=== PATIENT | female | born 1955 | race Caucasian/White ===

== ENCOUNTER 2017-07-25 01:06 | Inpatient (IN) ==
[2017-07-25] MEDS ORDERED: Ondansetron 4 MG/2 ML VIAL IVP ONE (01:32)
[2017-07-25] MEDS ORDERED: *HR* FentaNYL (PF) 100 MCG/2 ML VIAL IVP ONE ×2 (01:33→04:35)
--- NOTE | 2017-07-25 02:01 | Emergency Department Note ---
Disposition Clinical Impression: Fall Qualifiers: Encounter type: initial encounter Qualified Code(s): W19.XXXA - Unspecified fall, initial encounter Disposition: Admitted As Inpatient Condition: Undetermined Fall HPI - General Chief Complaint: ED Fall Stated Complaint: L shoulder injury Time Seen by Provider: 07/25/17 01:16 Source: patient, family, EMS Mode of arrival: ambulatory Limitations: no limitations Nursing Notes Reviewed: Yes Vital Signs Reviewed: Yes - History of Present Illness HPI Narrative: Patient is a 62-year-old obese woman with a history of A. fib anticoagulated on Coumadin, that presents to emergency department via EMS after falling out of home. Patient states she stood up out of her chair and when she went to take a step forward she tripped on her house shoes resulting in a forward momentum fall hitting her left shoulder with an entire force of body weight into dresser prior to falling to the floor. Patient complains of left shoulder pain to an inability to move despite a dose of morphine in squad prior to arrival, denies other injuries. 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 Denies: headache, neck pain , numbness, weakness, chest pain, shortness of breath, lightheaded, vertigo, confusion - Related Data Home Medications Medication Instructions Recorded Confirmed Carvedilol 6.25 mg PO BID 07/25/17 07/25/17 Citalopram 40 mg PO HS 07/25/17 07/25/17 Hydroxychloroquine 200 mg PO BID 07/25/17 07/25/17 Isosorbide Mononitrate 15 mg PO HS 07/25/17 07/25/17 Levothyroxine 200 mcg PO DAILY 07/25/17 07/25/17 Methotrexate 2.5 mg PO 07/25/17 Oxygen 4 l IH PRN 07/25/17 Pravastatin Sodium 40 mg PO DAILY 07/25/17 07/25/17 Symbicort 160/4.5 2 IH BID 07/25/17 Ventolin Hfa 1 puff IH 07/25/17 Warfarin 5 mg PO DAILY 07/25/17 07/25/17 rOPINIRole 1 mg PO HS 07/25/17 07/25/17 Previous Rx's Medication Instructions Recorded Phenazopyridine [Pyridium] 100 mg PO TID #21 tablet 08/04/16 levoFLOXacin [Levaquin] 500 mg PO DAILY #7 tablet 08/04/16 cephALEXin [Cephalexin] 500 mg PO BID #14 tablet 03/27/17 Allergies Allergy/AdvReac Type Severity Reaction Status Date / Time acetaminophen [From Percocet] AdvReac Agitated Verified 03/26/17 22:07 Oxycodone [From Percocet] AdvReac Agitated Verified 03/26/17 22:07 All systems ED: reviewed and negative except as stated. Review of Systems: As Per HPI Constitutional: Reports: as per HPI. Denies: weakness Cardiovascular: Reports: as per HPI. Denies: chest pain, palpitations, dyspnea on exertion, syncope Respiratory: Reports: as per HPI. Denies: cough, dyspnea, wheezes, sputum production Musculoskeletal: Reports: as per HPI Integumentary: Reports: as per HPI. Denies: rash Neurological: Reports: as per HPI. Denies: headache, weakness, numbness, paresthesias, confusion, abnormal gait, vertigo Fall PMH - Past Medical History Medical history: Reports: atrial fibrillation, COPD, diabetes, hyperlipidemia, hypertension Psychiatric history: Reports: depression - Social History Smoking Status: Current every day smoker Alcohol use: Reports: none Drug use: Reports: none Physical Exam - General Limitations: no limitations General appearance: alert, in distress - Head Head exam: atraumatic, normocephalic, normal inspection - Eye Eye exam: Present: normal appearance, PERRL - Neck Neck exam: Present: normal inspection, full ROM, trachea midline - Chest Chest inspection: Present: normal inspection, symmetric chest wall rise - Respiratory Respiratory exam: Present: normal lung sounds bilaterally. Absent: respiratory distress, accessory muscle use, prolonged expiratory phase - Cardiovascular Cardiovascular exam: Present: regular rate, normal rhythm, normal heart sounds - Abdominal Exam Abdominal exam: Present: soft, Non-Tender, normal bowel sounds. Absent: tenderness, distention, diminished bowel sounds - Expanded Upper Extremity Exam Shoulder exam: Present: tenderness (left shoulder), tenderness over AC joint, other (inability to move shoulder d/t intense pain). Absent: swelling, abrasion , laceration, ecchymosis, deformity, crepitus, dislocation, erythema Arm exam: Present: normal inspection, tenderness. Absent: full ROM (not able d/ t pain), swelling, abrasion, ecchymosis Elbow exam: Present: normal inspection. Absent: full ROM, tenderness, deformity Forearm/Wrist exam: Present: normal inspection. Absent: full ROM, tenderness Hand exam: Present: normal inspection, full ROM, tenderness Neuromotor exam: Normal: wrist extension, thumb opposition, thumb IP flexion, thumb adduction, fingers 2-5 abduction Neurosensory exam: Normal: radial nerve, ulnar nerve, median nerve, 2-point discrimination Vascular exam: Normal: capillary refill, radial pulse, ulnar pulse - Expanded Lower Extremity Exam Knee exam: Present: normal inspection, full ROM. Absent: tenderness, swelling, ecchymosis, deformity Gait: not tested/not observed - Neurological Exam Neurological exam: Present: alert, oriented X3, CN II-XII intact - Expanded Neurological Exam Speech: Present: fluid speech Cranial nerves: EOM function (II, III, IV, ): Normal, facial sensation (V): Normal, facial palsy (VII): Normal, gag reflex (IX): Normal Motor strength - LUE: 3/5 Motor strength - RUE: 5/5 Motor strength - LLE: 5/5 Motor strength - RLE: 5/5 Sensory exam upper extremity: 2 point discrimination: Normal Coma Scale Eye Opening: Spontaneous Coma Scale Motor Response: Obeys Commands Coma Scale Verbal Response: Oriented Coma Scale Total: 15 - Psychiatric Psychiatric exam: Present: normal affect, normal mood - Skin Skin exam: Present: warm, dry, intact, normal color Course Course Narrative: 62-year-old obese female with a history of A. fib anticoagulated on Coumadin presents from home via EMS and spouse for fall with left shoulder injury. Patient states while standing from chair she was all the way up and went to take a step forward and tripped over her house shoes is resulting in fall with forward motion hitting left shoulder on her dresser as she was falling to the floor. Patient denies other injury. Patient denies dizziness, syncope, confusion prior to fall, denies recent illness. Patient denies head injury, loss of consciousness, confusion after the fall. Spouse's witness to the fall confirmed patient retelling. Examination patient is alert and oriented 3 in moderately severe distress yelling out in pain. Head atraumatic, neurologically intact, Neck with full range of motion without tenderness. Right upper extremity with full range of motion and strength without any deficit, Left shoulder supported by homemade sling with arm pressed tightly against body for immobilization. Patient unable to move left shoulder and upper arm and elbow due to pain, wrist with full range of motion, hand with full range of motion, color left upper extremity is appropriate, temperature appropriate, 2 point discrimination intact and normal, no numbness, tingling, or paresthesia; pain with palpation to the left AC joint , with radiation across clavicle and down upper extremity. Rest of exam unremarkable. Patient is anticoagulated on Coumadin for A. fib, last INR was 2.6 on July 19. 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 Patient denies new onset issues with urination or defecation, no new signs of urinary illness appreciated. Plan is to treat pain, x-ray shoulder, and reevaluate. - Reevaluation(s) Reevaluation #1: Patient continues to have pain, at bedside. Shoulder x-ray revealed comminuted fracture involving the greater tuberosity of the left proximal humerus without dislocation. We will continue to treat patient's pain and evaluate. Time: 02:30 Reevaluation #2: Pain and reported 7 out of 10. Discussed care with patient and explaining the fracture is inoperable most of the time, patient will be referred to orthopedics, and that we would splint his left shoulder treat for pain and patient would be safe to go home. Patient state that they do not think it is safe for them to go home due to inability patient to maneuver through her house due to have it and on mobile left arm, patient and spouse are worried about pain control, much prefer to be admitted for pain control. Discussed case with Attending Dr. Ramos about case, agree with plan of care. At this time admission to inpatient unit for pain control and then management of fracture would be prudent and acceptable. At this time admission to inpatient status is reasonable and acceptable for pain control and med management of fracture and further monitoring. Hospitalist paged. Time: 03:10 Reevaluation #3: Patient up to bedside commode with staff assistance after arm placed in a sling , patient continues to complain of pain back up to an 8 out of 10 scale lochia dose of fentanyl and some to manage pain. Hospitalist on floor to see patient will be admitted under hospitalist service patient and family agreeable plan. Time: 04:40 Vital Signs Temperature 98.7 F 07/25/17 01:12 Pulse Rate 60 07/25/17 01:12 Respiratory Rate 18 07/25/17 01:12 Blood Pressure 138/63 07/25/17 01:12 O2 Sat by Pulse Oximetry 96 07/25/17 01:12 Temperature 98.6 F 07/25/17 05:15 Pulse Rate 61 07/25/17 05:15 Respiratory Rate 17 07/25/17 05:15 Blood Pressure 121/55 07/25/17 05:15 O2 Sat by Pulse Oximetry 90 07/25/17 05:15 Oxygen Delivery Oxygen Delivery Room Air Fall - Medical Records Medical records reviewed: Yes I reviewed the patient's medical records. - Lab Data Result diagrams: 07/25/17 04:20 07/25/17 04:20 Lab Results 07/25/17 07/25/17 07/25/17 Range/Units 04:20 04:20 04:20 WBC 14.4 H (4.3-11.1) K/mcL RBC 3.62 L (3.82-4.97) M/mcL Hgb 10.4 L (11.5-15.4) g/dL Hct 32.8 L (35.3-44.9) % MCV 90.6 (83.0-100.0) fL MCH 28.7 (28.0-33.3) pg MCHC 31.7 (31.6-35.5) g/dL RDW 16.7 H (11.5-14.5) % Plt Count 312 (140-400) K/mcL MPV 11.7 (9.4-12.4) fL Immature Gran % 0.6 (0-4) % Seg Neutrophils % 82.3 % Lymphocytes % 12.3 % Monocytes % 3.2 % Eosinophils % 1.0 % Basophils % 0.6 % Neutrophils # 11.9 H (1.6-8.9) K/mcL Lymphocytes # 1.8 (0.6-4.6) K/mcL Monocytes # 0.5 (0.0-1.3) K/mcL Eosinophils # 0.2 (0.0-0.6) K/mcL Basophils # 0.1 (0.0-0.2) K/mcL PT 44.2 H* (9.4-12.1) Seconds INR 4.0 Sodium 141 (136-145) mEq/L Potassium 3.6 (3.5-5.1) mEq/L Chloride 101 (98-107) mEq/L Carbon Dioxide 30 H (23-29) mEq/L BUN 43 H (8-23) mg/dL Creatinine 1.47 H (0.60-1.20) mg/dL Est GFR ( Amer) 43 L (> 60) Est GFR (Non-Af Amer) 36 L (> 60) BUN/Creatinine Ratio 29 H (6-26) Glucose 115 H (70-105) mg/dL Calculated Osmolality 304 H (280-300) Calcium 8.9 (8.6-10.3) mg/dL Magnesium 1.6 (1.6-2.6) mg/dL - Radiology Data Radiology results reviewed: Yes I reviewed the patient's radiology results. Shoulder X-Ray 07/25/17 01:34 IMPRESSION: Acute comminuted fracture involving the greater tuberosity of the left proximal humerus. D/ / Hina Cross MD / Hina Cross MD Interpreting Provider: Hina Cross MD
[2017-07-25] MEDS ORDERED: *HR* Nalbuphine 20 MG/ML AMPUL IVP ONE (02:03)
[2017-07-25] MEDS ORDERED: *HR* Morphine Immed Rel 30 MG TABLET PO ONE (02:58)
[2017-07-25 04:38] LABS: Basophils # 0.1 K/mcL (0.0-0.2); Basophils % 0.6 %; Eosinophils # 0.2 K/mcL (0.0-0.6); Hematocrit 32.8 % (35.3-44.9); Hemoglobin 10.4 g/dL (11.5-15.4); Immature Granulocytes % 0.6 % (0-4); Lymphocytes # 1.8 K/mcL (0.6-4.6); Lymphocytes % 12.3 %; Mean Corpuscular HGB Conc 31.7 g/dL (31.6-35.5); Mean Corpuscular Hemoglobin 28.7 pg (28.0-33.3); Mean Corpuscular Volume 90.6 fL (83.0-100.0); Mean Platelet Volume 11.7 fL (9.4-12.4); Monocytes # 0.5 K/mcL (0.0-1.3); Monocytes % 3.2 %; Neutrophils # 11.9 K/mcL (1.6-8.9); Platelet Count 312 K/mcL (140-400); Red Blood Count 3.62 M/mcL (3.82-4.97); Red Cell Distribution Width 16.7 % (11.5-14.5); Segmented Neutrophils % 82.3 %
[2017-07-25] MEDS ORDERED: Naloxone 0.4 MG/ML INJ IVP PRN (04:46)
--- NOTE | 2017-07-25 05:03 | Internal Med History&Physical ---
Date of Encounter: 07/25/17 Time of Encounter: 04:55 Assessment and Plan (1) Proximal humeral fracture Current visit: Yes Status: Acute 1. Patient with significant pain. 2. Will treat with oral Ultram and PRN IV Fentanyl for severe pain with close monitoring. 3. Consult Orthopedics -- likely non-operative care. 4. Given Coumadin use, there is concern for hemarthrosis. May need CT imaging. Qualifiers: Encounter type: initial encounter Fracture type: closed Fracture morphology: other fracture Fracture alignment: nondisplaced Laterality: left Qualified Code(s): S42.295A - Other nondisplaced fracture of upper end of left humerus, initial encounter for closed fracture (2) Lupus (systemic lupus erythematosus) Current visit: Yes Status: Chronic 1. Will await verified home med list. Plan to resume home meds as appropriate. 2. Patient has not been on steroids in several months. Qualifiers: Systemic lupus erythematosus type: other Systemic lupus erythematosus organ involvement: pericarditis Qualified Code(s): M32.12 - Pericarditis in systemic lupus erythematosus (3) Atrial fibrillation, chronic Current visit: No Status: Acute 1. Continue home meds as appropriate -- once verified. 2. Hold Coumadin for now and monitor daily PT/INR. (4) CKD (chronic kidney disease) stage 3, GFR 30-59 ml/min Current visit: Yes Status: Acute 1. Monitor kidney function and consult nephrology if necessary. 2. Avoid nephrotoxic drugs if able. (5) DVT prophylaxis Current visit: Yes Status: Acute 1. On home Coumadin at home. Will hold for possible surgical intervention. 2. Check PT/INR -- if subtherapeutic, will need DVT prophylaxis. Internal Medicine - H&P: HPI Chief complaint: left shoulder pain Admitted From: Emergency Dept Plans for Post Hospital Care: Home History of present illness: Ms. Melo is a 62 year old female who presents to the ER tonight after she had a mechanical fall at home. She sustained a fracture to her proximal humerus. She was brought in to the ER by her family, and x-rays confirmed proximal humerus fracture. Patient was placed in a sling and is being admitted to the hospitalist service for intractable pain. Of note, patient is on Coumadin for atrial fibrillation, and labs are pending at this time. Upon my assessment of the patient in the ER, patient has been in a moderate amount of pain. She and her state that this was a mechanical fall. She had no loss of consciousness, dizziness, or near syncopal spell. She simply tripped over a pair of shoes and landed on her shoulder, sustaining a fracture. Patient takes Coumadin for atrial fibrillation and denies any mechanical heart valves. She also reports a history of lupus and takes plaquenil for disease control of her lupus. 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 This required resection of her pericardium at [facility]. Since then, she has been fine and had no problems from a cardiac standpoint other than atrial fibrillation. Given the fact she is on Coumadin and her intense pain, I am concerned about a hemarthrosis. I have asked Dr. Miranda to see patient in consultation. If necessary, we can reverse her Coumadin temporarily if orthopedics recommends such action. Past Med Surg Social Fam HX - Past Medical History Attestation: Yes The following information was validated with the patient. Source: patient, obtained from family Medical history: atrial fibrillation, COPD, diabetes, hyperlipidemia, hypertension, other (SLE) Psychiatric history: depression - Past Surgical History Surgical History: knee replacement, other (pericardial resection) - Social History Smoking Status: Current every day smoker Smokeless Tobacco Status: No Alcohol use: none Drug use: none Current living situation: Home, With Family Activity Level: Independent ambulation Recent Out of Country Travel Within the Last 8 Weeks: No - Family History Mother Hx Family Musculoskeletal Disorders: No Father Hx Family Musculoskeletal Disorders: No Internal Medicine - H&P: Meds Phenazopyridine [Pyridium] 100 mg PO TID #21 tablet 08/04/16 [Rx] levoFLOXacin [Levaquin] 500 mg PO DAILY #7 tablet 08/04/16 [Rx] cephALEXin [Cephalexin] 500 mg PO BID #14 tablet 03/27/17 [Rx] 3 Allergy/AdvReac Type Severity Reaction Status Date / Time acetaminophen [From Percocet] AdvReac Agitated Verified 03/26/17 22:07 Oxycodone [From Percocet] AdvReac Agitated Verified 03/26/17 22:07 - Constitutional Constitutional: no chills, no fever(s) - EENT Eyes: no blurry vision, no change in vision Ears: no ear pain, no tinnitus Nose, mouth and throat: no nasal congestion, no sinus pressure, no sore throat - Cardiovascular Cardiovascular ROS IM: no chest pain, no diaphoresis, no dyspnea, no dyspnea on exertion, no edema, no lightheadedness, no orthopnea, no palpitations, no syncope - Respiratory Respiratory: no cough, no dyspnea, no hemoptysis - Gastrointestinal Gastrointestinal: no abdominal pain, no diarrhea, no vomiting - Genitourinary Genitourinary: no dysuria, no flank pain, no hematuria - Musculoskeletal Musculoskeletal ROS IM: arthralgias (left shoulder), joint swelling - Integumentary Integumentary IM: no rash, no jaundice - Neurological Neurological ROS: no disequilibrium, no dizziness, no focal weakness, no frequent falls, no headache(s), no vertigo, no weakness - Psychiatric Psychiatric: no anxiety, no depression - Endocrine Endocrine IM: no polydipsia, no polyuria - Hematologic/Lymphatic Hematologic/Lymphatic: easy bruising - Allergic/Immunologic Allergic/Immunologic: no wheezing, no GI upset with certain foods - Constitutional Vitals: Temp Pulse Resp BP Pulse Ox 98.7 F 61 18 140/64 93 07/25/17 01:12 07/25/17 04:06 07/25/17 04:06 07/25/17 04:06 07/25/17 04:06 General appearance: Present: cooperative, A&O X 3, pleasant, severe distress ( due to shoulder pain) - Head Head exam: Present: atraumatic, normal inspection - Expanded Head Exam Head exam expanded: Absent: abrasion, contusion, general tenderness - Eye Eye exam: Present: EOMI, normal appearance, PERRL. Absent: scleral icterus Pupils: Present: normal accommodation - ENT ENT exam: Present: mucous membranes moist, normal exam, normal oropharynx - Neck Neck exam general surgery: Present: full ROM, supple. Absent: lymphadenopathy, tenderness, nuchal rigidity - Respiratory Respiratory exam: Present: CTAB. Absent: chest wall tenderness, rales, rhonchi , wheezes - Cardiovascular Cardiovascular exam: Present: irregular rhythm, +S1, +S2, systolic murmur ( grade 1 ). Absent: diastolic murmur, JVD - GI/Abdominal GI/Abdominal exam: Present: normal bowel sounds, soft. Absent: hepatomegaly, mass, splenomegaly, tenderness - Extremities Exam Extremities exam: Present: normal capillary refill, tenderness (left shoulder - - in a sling), warm, radial pulses palpable and symmetrical. Absent: calf tenderness, pedal edema - Back Exam Back exam: Absent: CVA tenderness (L), CVA tenderness (R) - Neurological Exam Neurological exam: Present: alert, CN II-XII intact, oriented X3, no focal deficits, strengths equal and symetr throughout - Psychiatric Psychiatric exam: Present: normal affect, normal mood - Skin Skin exam: Present: dry, warm. Absent: rash Internal Med - H&P Results - Labs CBC & Chem 7: 07/25/17 04:20 - Diagnostic Studies Other Images Status: image reviewed by me (shoulder xray -- fracture of greater tuberosity of left humerus) - VTE Reasons for not Prescribing Prophylaxis: Not indicated-Anticoagulated or INR therapeutic
[2017-07-25 05:07] LABS: Calcium 8.9 mg/dL (8.6-10.3); Magnesium 1.6 mg/dL (1.6-2.6); Potassium 3.6 mEq/L (3.5-5.1)
[2017-07-25 05:11] LABS: Prothrombin Time 44.2 Seconds (9.4-12.1)
--- NOTE | 2017-07-25 06:49 | Orthopedic Consult Note ---
Date of Encounter: 07/25/17 Time of Encounter: 06:47 History of Present Illness HPI: Ms. Melo is a 62 year old female Status post fall last night with injury to left arm. Patient denies any head trauma. Patient is on Coumadin patient INR is 4.0. Physical exam Left upper extremity Decreased range of motion secondary to pain Positive swelling Neurovascular intact X-ray displaced left proximal humerus fracture Recommendations surgical management patient's INR needs to be under 2.0. Past Med Surg Social Fam HX - Past Medical History Medical history: atrial fibrillation, COPD, diabetes, hyperlipidemia, hypertension Psychiatric history: depression - Past Surgical History Surgical History: knee replacement, other - Social History Smoking Status: Current every day smoker Smokeless Tobacco Status: No Alcohol use: none Drug use: none - Family History Mother Hx Family Musculoskeletal Disorders: No Father Hx Family Musculoskeletal Disorders: No Daughter Living Status: Still Living Hx Family Neuromuscular Disorders: Yes Medications and Allergies 3 Allergy/AdvReac Type Severity Reaction Status Date / Time acetaminophen [From Percocet] AdvReac Agitated Verified 03/26/17 22:07 Oxycodone [From Percocet] AdvReac Agitated Verified 03/26/17 22:07 All Systems Reviewed: A 10-system review of systems was performed and is negative for pertinent findings except as documented above in the HPI. Physical Exam - Constitutional Vitals: Temp Pulse Resp BP Pulse Ox 98.6 F 61 17 121/55 90 07/25/17 05:15 07/25/17 05:15 07/25/17 05:15 07/25/17 05:15 07/25/17 05:15 Results - Labs Result Diagrams: 07/25/17 04:20 07/25/17 04:20 Labs: Abnormal lab results WBC 14.4 K/mcL (4.3-11.1) H 07/25/17 04:20 RBC 3.62 M/mcL (3.82-4.97) L 07/25/17 04:20 Hgb 10.4 g/dL (11.5-15.4) L 07/25/17 04:20 Hct 32.8 % (35.3-44.9) L 07/25/17 04:20 RDW 16.7 % (11.5-14.5) H 07/25/17 04:20 Neutrophils # 11.9 K/mcL (1.6-8.9) H 07/25/17 04:20 PT 44.2 Seconds (9.4-12.1) H* 07/25/17 04:20 Carbon Dioxide 30 mEq/L (23-29) H 07/25/17 04:20 BUN 43 mg/dL (8-23) H 07/25/17 04:20 Creatinine 1.47 mg/dL (0.60-1.20) H 07/25/17 04:20 Est GFR ( Amer) 43 (> 60) L 07/25/17 04:20 Est GFR (Non-Af Amer) 36 (> 60) L 07/25/17 04:20 BUN/Creatinine Ratio 29 (6-26) H 07/25/17 04:20 Glucose 115 mg/dL (70-105) H 07/25/17 04:20 Calculated Osmolality 304 (280-300) H 07/25/17 04:20 All other labs normal. Consult Discharge Plan - Plan Referrals: Maribeth Segura MD [Primary Care Provider] -
[2017-07-25] MEDS: traMADol 50 MG TABLET PO PRN ×2 (06:51→18:55)
[2017-07-25] MEDS: 0.9 % Sodium Chloride 1,000 ML IVC SCH ×2 (06:52→22:05)
[2017-07-25] MEDS: *HR* FentaNYL (PF) 100 MCG/2 ML VIAL IVP PRN ×4 (08:30→22:08)
[2017-07-25] MEDS ORDERED: *HR* Phytonadione 5 MG TABLET PO ONE (17:37)
--- NOTE | 2017-07-25 17:38 | Event Note ---
Date of Encounter: 07/25/17 Time of Encounter: 14:00 62-year-old female with history of lupus, atrial fibrillation, hypothyroidism, COPD, tobacco abuse, is admitted status post mechanical fall, noted to have left proximal humeral fracture. Orthopedics has been consulted, plan for surgical reduction tomorrow, left upper extremity in sling currently. Seen and examined at bedside. Reports left arm pain. Chest-S1, S2 heard, lungs are clear to auscultation. Left upper extremity in sling Left proximal humeral fracture-continue current management. Pain control with when necessary IV fentanyl and oral Percocet. Plan for ORIF tomorrow after INR correction. Atrial fibrillation-currently rate controlled. Continue beta ximena. On long- term anticoagulations with Coumadin, INR noted to be supratherapeutic at 4. Hold Coumadin for now. Supratherapeutic INR-hold Coumadin. We will give a dose of vitamin K 2.5 mg by mouth. [place] [facility]'s for tomorrow morning if INR is not less than 2.
--- NOTE | 2017-07-25 20:25 | Anesthesia Evaluation PreOp ---
Date of Encounter: 07/25/17 Time of Encounter: 20:23 - Past History Planned Operation: Left Proximal Humerus ORIF Cardiac History: HTN, Hyperlipidemia, Arrhythmia (H/O A-Fib--last dose coumadin 07/24/2017 at 0900), Cardiac Surgery (pericardial resection) Pulmonary History: Smoker, COPD, LALI Dx WOOD ENGRAVER History: Denies Any Significant HX Other Medical History: Renal (stage 4 CKD), Other (Lupus (SLE)) Anesthesia History: No Prior Anesthetic Complications, Past Anesthesia Alcohol Use: none Drug use: none Medications and Allergies Albuterol Sulfate [Albuterol Inhaler] 2 puff IH Q4HR PRN 07/25/17 [History] Budesonide/Formoterol 160/4.5 [Symbicort 160/4.5] 2 puff IH BIDR 07/25/17 [ History] Carvedilol [Coreg] 6.25 mg PO BID 07/25/17 [History] Citalopram Hydrobromide [Celexa] 40 mg PO DAILY 07/25/17 [History] Enalapril Maleate [Vasotec] 2.5 mg PO BID 07/25/17 [History] HYDROcodone/Acet 7.5/325 mg [[place] 7.5-325 mg] 1 tab PO TID PRN 07/25/17 [ History] Hydroxychloroquine [Plaquenuil] 200 mg PO BID 07/25/17 [History] Isosorbide MONOnitrate (24 HR) [Imdur] 15 mg PO DAILY 07/25/17 [History] Levothyroxine Sodium [Synthroid] 200 mcg PO DAILY 07/25/17 [History] Methotrexate [Otrexup] 20 mg PO QWEEK 07/25/17 [History] Montelukast [Singulair] 10 mg PO DAILY 07/25/17 [History] OxyCODONE ER (12 HR) [OxyCONTIN] 20 mg PO Q8HR 07/25/17 [History] Oxybutynin [Ditropan] 5 mg PO BID 07/25/17 [History] Oxygen 4 l NS DAILY PRN 07/25/17 [History] Pravastatin Sodium [Pravachol] 40 mg PO DAILY 07/25/17 [History] Warfarin [Coumadin] 1.25 mg PO SUMOTUWEFRSA 07/25/17 [History] rOPINIRole [Requip] 1 mg PO HS 07/25/17 [History] 3 Allergy/AdvReac Type Severity Reaction Status Date / Time acetaminophen [From Percocet] AdvReac Agitated Verified 03/26/17 22:07 Oxycodone [From Percocet] AdvReac Agitated Verified 03/26/17 22:07 - Meds/Allergy Pre-op Review Medications Reviewed: Yes Allergies Reviewed: Yes Beta Blockers on Current Med List: Yes Anesthesia Results - Labs 07/25/17 04:20 07/25/17 04:20 - Imaging EKG: report reviewed (05/24/2018 SB, low QRS voltage in precordial leads) Additional studies: 07/28/2013 Echo Impressions: * Technically sub-optimal due to poor echocardiographic windows. * LVEF 55%. * Normal left ventricular structure and function. * Indeterminate diastolic function. * Normal right ventricular structure and function. * No evidence of pulmonary hypertension. * No significant valvular heart disease. 05/24/2010 Stress IMPRESSION: 1. Normal EKG portion of the nuclear stress test using Obi protocol. 2. There are no cardiac dysrhythmias identified during the stress test. 3. The nuclear portion has been interpreted by the tank truck operator as no evidence of stress-induced ischemia. There was an anterior wall fixed defect consistent with breast attenuation. Ejection fraction was noted to be 68%. Anesthesia Exam Vital Signs/O2 Sat, Most Current Temp Pulse Resp BP Pulse Ox 99.3 F 59 16 106/68 96 07/25/17 18:51 07/25/17 18:51 07/25/17 18:51 07/25/17 18:51 07/25/17 18:51 Height: 5'2''/1.57 m Weight: 220 lbs/100 kg NPO (# of Hours): 8 Pain Scale: 7 Pain Scale Used: Numeric (1 - 10) - HEENT Pupil (Motor): EOMI Mallampati: III Teeth: Normal Denture Type: Upper: Partial Oral Opening: Greater than 3 - WOOD ENGRAVER LOC: Oriented WOOD ENGRAVER Motor: Normal RUE, Normal LUE, Normal RLE, Normal LLE, Normal Face WOOD ENGRAVER Sensory: Normal: RUE, LUE, RLE, LLE, Face - Cardiac Rhythm: Regular Murmur: Systolic - Pulmonary Breath Sounds: bilateral Clear Respiratory Effort: Symmetrical Anesthesia Assess/Plan ASA Score: 3 Modified Aubere Scale for Level of Consciousness: Cooperative, oriented, and tranquil Anesthetic Plan: General, Regional Monitoring Plan: Standard Monitors Recovery Plan: PACU
[2017-07-25] MEDS: *HR* HYDROcodone/Acet 7.5/325 mg TABLET PO PRN (21:18)
[2017-07-25] MEDS: rOPINIRole 1 MG TABLET PO SCH (21:18)
[2017-07-25] MEDS: Budesonide/Formoterol 160/4.5 MDI IH SCH (21:58)
[2017-07-26] MEDS: *HR* FentaNYL (PF) 100 MCG/2 ML VIAL IVP PRN ×2 (04:02→10:22)
[2017-07-26 05:15] LABS: Basophils # 0.1 K/mcL (0.0-0.2); Basophils % 1.1 %; Eosinophils # 0.2 K/mcL (0.0-0.6); Eosinophils % 2.1 %; Hematocrit 34.2 % (35.3-44.9); Hemoglobin 10.5 g/dL (11.5-15.4); Immature Granulocytes % 1.1 % (0-4); Lymphocytes # 2.2 K/mcL (0.6-4.6); Lymphocytes % 21.2 %; Mean Corpuscular HGB Conc 30.7 g/dL (31.6-35.5); Mean Corpuscular Hemoglobin 28.4 pg (28.0-33.3); Mean Corpuscular Volume 92.4 fL (83.0-100.0); Mean Platelet Volume 11.5 fL (9.4-12.4); Monocytes # 0.5 K/mcL (0.0-1.3); Monocytes % 4.8 %; Neutrophils # 7.1 K/mcL (1.6-8.9); Nucleated Red Blood Cells 0.2 /100 WBC (0); Platelet Count 305 K/mcL (140-400); Red Cell Distribution Width 16.8 % (11.5-14.5); Segmented Neutrophils % 69.7 %
[2017-07-26 05:22] LABS: INR 3.7; Prothrombin Time 40.7 Seconds (9.4-12.1)
[2017-07-26 05:44] LABS: BUN/Creatinine Ratio 27 (6-26); Blood Urea Nitrogen 28 mg/dL (8-23); Calcium 8.9 mg/dL (8.6-10.3); Carbon Dioxide 28 mEq/L (23-29); Chloride 105 mEq/L (98-107); Glucose 102 mg/dL (70-105); Osmolality,Calculated 298 (280-300); Potassium 3.7 mEq/L (3.5-5.1); Sodium 141 mEq/L (136-145); eGFR For African Americans > 60 (> 60); eGFR For Non-African Americans 53 (> 60)
[2017-07-26] MEDS ORDERED: 0.9 % Sodium Chloride 500 ML ONE (07:48)
--- NOTE | 2017-07-26 07:57 | Orthopedics Progress Note ---
Date of Encounter: 07/26/17 Time of Encounter: 07:56 Subjective Interval history: patient for surgery for ORIF left proximal humerus inr 3.7 will give FFP plan for surgery today Objective Vital signs: Vital Signs Temp Pulse Resp BP Pulse Ox 07/26/17 06:59 98.8 F 56 16 154/81 96 07/26/17 03:43 99.1 F 50 16 157/77 100 07/25/17 22:58 98.8 F 52 16 144/71 97 07/25/17 22:00 14 93 07/25/17 18:51 99.3 F 59 16 106/68 96 07/25/17 16:50 98.8 F 54 15 120/54 97 07/25/17 13:45 98.8 F 58 12 115/68 94 07/25/17 12:52 96 Intake and Output 07/25/17 07/25/17 07/26/17 15:59 23:59 07:59 Intake Total 1150 / 1150 Output Total 0 / 0 Balance 1150 / 1150 Intake: IV Fluids 1000 / 1000 0.9 % Sodium Chloride 1,000 ML 1000 / 1000 @ 75 mls/hr IVC .[id number] [facility] Rx #:[id number] Oral 150 / 150 Output: Urine 0 / 0 Other: # Voids 1 1 1 - Labs CBC & BMP: 07/26/17 04:59 07/26/17 04:59 Labs: Abnormal lab results RBC 3.70 M/mcL (3.82-4.97) L 07/26/17 04:59 Hgb 10.5 g/dL (11.5-15.4) L 07/26/17 04:59 Hct 34.2 % (35.3-44.9) L 07/26/17 04:59 MCHC 30.7 g/dL (31.6-35.5) L 07/26/17 04:59 RDW 16.8 % (11.5-14.5) H 07/26/17 04:59 Nucleated RBCs/100 WBC 0.2 /100 WBC (0) H 07/26/17 04:59 PT 40.7 Seconds (9.4-12.1) H 07/26/17 04:59 BUN 28 mg/dL (8-23) H 07/26/17 04:59 Est GFR (Non-Af Amer) 53 (> 60) L 07/26/17 04:59 BUN/Creatinine Ratio 27 (6-26) H 07/26/17 04:59 - VTE Reasons for not Prescribing Prophylaxis: Not indicated-Anticoagulated or INR therapeutic Consult Discharge Plan - Plan Referrals: Maribeth Segura MD [Primary Care Provider] -
[2017-07-26] MEDS: Isosorbide MONOnitrate (24 HR) 30 MG TAB.ER.24H PO SCH (08:20)
[2017-07-26] MEDS: Budesonide/Formoterol 160/4.5 MDI IH SCH ×2 (08:44→20:32)
[2017-07-26] MEDS: *HR* HYDROcodone/Acet 7.5/325 mg TABLET PO PRN (09:29)
[2017-07-26] MEDS ORDERED: 0.9 % Sodium Chloride 250 ML ONE (12:07)
--- NOTE | 2017-07-26 12:45 | Electrocardiograph Report ---
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
[2017-07-26] MEDS ORDERED: Ondansetron 4 MG/2 ML VIAL ONE (13:31)
[2017-07-26] MEDS ORDERED: Dexamethasone 4 MG/ML VIAL ONE (13:31)
[2017-07-26] MEDS ORDERED: Lidocaine -MPF 2% 2 ML VIAL ONE (13:31)
[2017-07-26] MEDS ORDERED: *HR* Midazolam HCl 2 MG/2 ML VIAL ONE (13:32)
[2017-07-26] MEDS ORDERED: *HR* FentaNYL (PF) 100 MCG/2 ML VIAL ONE (13:32)
[2017-07-26] MEDS ORDERED: *HR* Succinylcholine 200 MG/10 ML VIAL IVP ONE (13:32)
[2017-07-26] MEDS ORDERED: *HR* Propofol 200 MG/20 ML VIAL IVP ONE (13:32)
[2017-07-26] MEDS ORDERED: *HR* Rocuronium Bromide 50 MG/5 ML VIAL ONE (13:32)
[2017-07-26] MEDS ORDERED: Water for inj. (sterile) 10 ML IV ONE (13:35)
[2017-07-26] MEDS ORDERED: Lidocaine -MPF 4% 5 ML AMPUL ONE (13:35)
[2017-07-26] MEDS ORDERED: *HR* Ropivacaine/PF 0.5% 20 ML VIAL ONE (13:39)
--- NOTE | 2017-07-26 14:04 | Anesthesia Procedures ---
Date of Encounter: 07/26/17 Time of Encounter: 13:40 Procedures: Anesthesia - Nerve Block Procedure Date: 07/26/17 Time: 13:40 Pre-op Diagnosis: Fracture Left Proximal Humerus Surgical Procedure: ORIF Left Prox Humerus Checklist: Correct Patient Identifier Correct side: Left Blood Thinner: No Monitor Applied: EKG, BP, Pulse Oximetry Supplemental Oxygen via Nasal Cannula (L/min): 2 Sedation: Versed (mg): 2 Indication: Post Op Analgesia Pre-op Neuro Deficits: No Block Type: Supraclavicular Catheter placed: No Depth at skin (cm): 2 Sterile Technique: Yes Ultrasound used: Yes Anatomy identified: Yes Visual spread of Local: No Neuro Stimulation: No Blood on Needle Aspiration: No Smooth Injection of Local: Yes Pain with Injection of Local: No Prep: Chlorhexadine, Alcohol Needle: 22 x 50 mm Stimuplex Local: Ropivacaine (30cc) Volume (cc): 30cc Number of Attempts: 1 Complications: None/effective block Vitals: Vital Signs/O2 Sat/Glucose, Most Current Temp Pulse Resp BP Pulse Ox 07/26/17 12:31 98.6 F 46 15 177/78 94 07/26/17 12:12 98.8 F 48 15 168/73
[2017-07-26] MEDS ORDERED: EPHEDrine 50 MG/ML VIAL ONE (14:23)
[2017-07-26] MEDS ORDERED: *HR* Meperidine 25 MG/ML SYRINGE IVP PRN (14:29)
[2017-07-26] MEDS ORDERED: MORPHINE SUL Oral CONC 10 MG/0.5 ML ORAL.SYG SL PRN (14:29)
[2017-07-26] MEDS ORDERED: Albuterol 2.5 MG/3 ML NEBULIZER IH ONE (14:29)
[2017-07-26] MEDS ORDERED: Ondansetron 4 MG/2 ML VIAL IVP ONE (14:29)
[2017-07-26] MEDS ORDERED: *HR* HYDROcodone/Acet 7.5/325 mg TABLET PO PRN (14:29)
[2017-07-26] MEDS ORDERED: *HR* HYDROmorphone 2 MG TABLET PO PRN (14:29)
[2017-07-26] MEDS ORDERED: Ringers Solution, Lactated 1,000 ML IVC SCH (14:30)
[2017-07-26] MEDS ORDERED: Ketamine *HR* 500 MG/10 ML MDV ONE (14:51)
--- NOTE | 2017-07-26 15:13 | Orthopedic Operative Note ---
Date of procedure: 07/26/17 Pre-op diagnosis: displaced left proximal humerus fracture Post-op diagnosis: same Procedure: Procedure: Left open reduction internal fixation Humerus proximal humerus Estimated blood loss: 100 cc Hardware: 3 hole Synthes proximal humeral locking plate, 6 3.5 Locking screws Operative procedure: The patient was brought to the operating room and placed on the operating room table. After general anesthesia was administered the operative arm was prepped and draped in the sterile surgical fashion The patient received IV antibiotics prior to skin incision. A standard direct lateral approach was made to the humerus, the incision is made to the skin and subcutaneous tissue. Hemostasis was obtained with Bovie cautery. Using careful blunt dissection the fascia was identified and split proximal and distal to the axillary nerve. The fracture was identified and reduced after a #2 FiberWire suture was placed in a musculo/tendon junction.. Using fluoroscopic assistance a Synthes proximal humeral locking plate was approximated to the anterior lateral surface was fixed distally in compression with one 3.5 cortical screw. It was fixed proximally with 3 3.5 locking screws. Fixation was completed with distal fixation with 3 3.5 locking screws the compression screw was removed.. Position of the hardware as well as fracture reduction found to be acceptable on fluoroscopic exam evaluation. The wound was irrigated the lateral approach was closed with a running #1 PDS suture superficial tissues irrigated and closed deep with 0 PDS suture superficially with 0 PDS suture skin was closed with zip tie patient was sterile dressing and brace. The patient was extubated, and then transferred to the recovery room in stable condition. Anesthesia: GETA Surgeon: Dallas Miranda Was there an purchasing assistant present: No Estimated blood loss (cc): 75 Condition: stable Disposition: PACU
--- NOTE | 2017-07-26 15:48 | Anesthesia Evaluation Post Op ---
Date of Encounter: 07/26/17 Time of Encounter: 15:48 - Vital Signs Vital Signs: Vital Signs/O2 Sat/Glucose, Most Current Temp Pulse Resp BP Pulse Ox 07/26/17 15:35 53 16 172/76 93 07/26/17 15:25 55 16 165/75 93 07/26/17 15:15 101 F H 55 16 180/90 94 07/26/17 13:50 54 18 194/89 95 07/26/17 12:31 98.6 F 46 15 177/78 94 07/26/17 12:12 98.8 F 48 15 168/73 - Lungs Lungs: Clear Ascult./Percussion - Airway Airway: Non-obstructed - Cardiovascular Regular Rate, Baseline Rhythm - Mental Status Mental Status: Alert & Oriented, Answers Appropriately - Pain Pain Scale: 2 Pain Scale used: Numeric (1 - 10) - Nausea Vomiting Nausea Vomiting: Not Present - Hydration Hydration: Ice chips, Has not voided - Discharge PostOp Status: Transfer Patient to floor
[2017-07-26 15:56] LABS: Hematocrit 29.9 % (35.3-44.9); Hemoglobin 9.4 g/dL (11.5-15.4)
--- NOTE | 2017-07-26 17:32 | Internal Med Progress Note ---
Date of Encounter: 07/26/17 Time of Encounter: 13:30 - Assessment and plan (1) Proximal humeral fracture Status: Acute Assessment and plan: X-ray shows left proximal humeral fracture status post mechanical fall. Orthopedic surgery on board, plan for open reduction and internal fixation today. Receiving FFP is for INR of 3.7. Also received 2.5 mg vitamin K yesterday. Continue pain control with when necessary Percocet, IV fentanyl. Continue sling and supportive care. Qualifiers: Encounter type: initial encounter Fracture type: closed Fracture morphology: other fracture Fracture alignment: nondisplaced Laterality: left Qualified Code(s): S42.295A - Other nondisplaced fracture of upper end of left humerus, initial encounter for closed fracture (2) Atrial fibrillation, chronic Status: Chronic Assessment and plan: Currently rate controlled. Continue beta ximena. Anticoagulation with Coumadin currently on hold for orthopedic surgery. (3) CKD (chronic kidney disease) stage 3, GFR 30-59 ml/min Status: Chronic Assessment and plan: Serum creatinine stable at baseline. Avoid nephrotoxic agents. (4) COPD (chronic obstructive pulmonary disease) Status: Chronic Assessment and plan: Not in acute exacerbation. Continue when necessary bronchodilators and supplemental oxygen. Noted to be on 3-4 L/m via nasal cannula at home. Qualifiers: COPD type: unspecified COPD Qualified Code(s): J44.9 - Chronic obstructive pulmonary disease, unspecified (5) Essential hypertension Status: Chronic Assessment and plan: Blood pressure noted to be slightly elevated, could be due to uncontrolled pain. Continue home medications and monitor closely. (6) Hypothyroidism Status: Chronic Assessment and plan: Continue levothyroxine. Qualifiers: Hypothyroidism type: unspecified Qualified Code(s): E03.9 - Hypothyroidism , unspecified (7) Lupus (systemic lupus erythematosus) Status: Chronic Qualifiers: Systemic lupus erythematosus type: other Systemic lupus erythematosus organ involvement: unspecified Qualified Code(s): M32.8 - Other forms of systemic lupus erythematosus (8) Tobacco abuse Status: Chronic - Subjective Interval history: Reports left arm pain. Awaiting surgical fixation today. Receiving FFP's due to elevated INR. - Constitutional Vitals: Temp Pulse Resp BP Pulse Ox 97.6 F 60 15 190/92 92 07/26/17 16:45 07/26/17 16:45 07/26/17 16:45 07/26/17 16:45 07/26/17 16:45 General appearance: Present: cooperative, mild distress, A&O X 3, morbidly obese , answers questions appropriately - Respiratory Respiratory exam: Present: CTAB (Anterolaterally). Absent: accessory muscle use , rales, rhonchi, wheezes - Cardiovascular Cardiovascular exam: Present: RRR, +S1, +S2. Absent: diastolic murmur, gallop, rubs, systolic murmur - GI/Abdominal GI/Abdominal exam: Present: normal bowel sounds, soft (Obese), no peritoneal signs. Absent: distended, tenderness - Extremities Exam Extremities exam: Present: warm, radial pulses palpable and symmetrical. Absent : calf tenderness, cyanotic, pedal edema Additional comments: Left upper extremity in sling Internal Medicine: Result - Labs CBC & Chem 7: 07/26/17 15:45 07/26/17 04:59 Labs: Short CBC 07/26/17 07/26/17 Range/Units 04:59 15:45 WBC 10.1 (4.3-11.1) K/mcL Hgb 10.5 L 9.4 L (11.5-15.4) g/dL Hct 34.2 L 29.9 L (35.3-44.9) % Plt Count 305 (140-400) K/mcL Neutrophils # 7.1 (1.6-8.9) K/mcL BMP 07/26/17 04:59 Sodium 141 Potassium 3.7 Chloride 105 Carbon Dioxide 28 BUN 28 H Creatinine 1.04 Glucose 102 Calcium 8.9 - ABG Interpretation ABG results: PT/INR, D-dimer PT 40.7 Seconds (9.4-12.1) H 07/26/17 04:59 - Impressions Impressions Shoulder X-Ray 07/26/17 13:43 IMPRESSION: Uncomplicated ORIF of left proximal humerus D/ / Stephen Bryson MD / Stephen Bryson MD Interpreting Provider: Stephen Bryson MD Fluoroscopy 07/26/17 14:10 IMPRESSION: Intraprocedural fluoroscopic spot images as above. See separate procedure report for more information. D/ / 07/26/2017 15:17:13 Aditi Rivera MD / arik Interpreting Provider: Aditi Rivera MD Humerus X-Ray 07/26/17 14:10 IMPRESSION: Intraprocedural fluoroscopic spot images as above. See separate procedure report for more information. D/ / 07/26/2017 15:17:13 Aditi Rivera MD / arik Interpreting Provider: Aditi Rivera MD - VTE Reasons for not Prescribing Prophylaxis: Not indicated-Anticoagulated or INR therapeutic Documentation of Mechanical Device: Venous foot pump, device Consult Discharge Plan - Plan Instructions: Arm Fracture in Adults (DC) Referrals: Amy Gomez PAC [Physician Mold Repairer] - 08/02/17 8:45 am Maribeth Segura MD [Primary Care Provider] - 09/08/17 10:15 am
[2017-07-26] MEDS: rOPINIRole 1 MG TABLET PO SCH (20:16)
[2017-07-27] MEDS ORDERED: ceFAZolin 3,000 MG in D5% in Water 100 ML IVPB SCH (04:30)
[2017-07-27] MEDS: CeFAZolin Syr 3,000MG/30 ML 3,000 MG/30 ML SYRINGE IVPB SCH ×2 (04:51→12:32)
[2017-07-27] MEDS: *HR* HYDROcodone/Acet 7.5/325 mg TABLET PO PRN ×2 (05:06→11:13)
[2017-07-27 05:17] LABS: Prothrombin Time 22.4 Seconds (9.4-12.1)
[2017-07-27] MEDS: Isosorbide MONOnitrate (24 HR) 30 MG TAB.ER.24H PO SCH (07:31)
--- NOTE | 2017-07-27 07:50 | Orthopedics Progress Note ---
Date of Encounter: 07/27/17 Time of Encounter: 07:50 Subjective Interval history: Patient was seen this morning doing well without complaints. Afebrile vital signs stable. Operative extremity: Neurovascularly intact Dressing clean dry and intact Calves nontender Assessment and plan: Continue with postoperative care Stable for discharge Objective Vital signs: Vital Signs Temp Pulse Resp BP Pulse Ox 07/27/17 07:43 96 07/27/17 06:43 98.7 F 68 16 158/83 96 07/27/17 03:04 99.0 F 61 16 154/76 95 07/26/17 21:03 96 07/26/17 20:34 17 94 07/26/17 18:25 98.9 F 58 16 163/82 93 07/26/17 17:20 98.1 F 60 17 161/80 92 07/26/17 16:45 97.6 F 60 15 190/92 92 07/26/17 15:45 100.3 F H 53 16 151/65 93 07/26/17 15:35 53 16 172/76 93 07/26/17 15:25 55 16 165/75 93 07/26/17 15:15 101 F H 55 16 180/90 94 07/26/17 13:50 54 18 194/89 95 07/26/17 12:31 98.6 F 46 15 177/78 94 07/26/17 12:12 98.8 F 48 15 168/73 07/26/17 08:33 98.3 F 52 16 157/83 94 07/26/17 08:19 98.0 F 56 16 163/63 94 07/26/17 08:15 98.0 F 52 16 171/75 96 Intake and Output 07/26/17 07/26/17 07/27/17 15:59 23:59 07:59 Intake Total 700 / 700 200 / 200 250 / 250 Output Total 675 / 675 Balance 25 / 25 200 / 200 250 / 250 Intake: Oral 450 / 450 200 / 200 250 / 250 Blood Product 250 / 250 Plasma Unit [id number] 0 / 0 Plasma Unit [id number] 250 / 250 Output: Urine 600 / 600 Estimated Blood Loss 75 / 75 Other: Meal Lunch Percent of Meal Consumed 75% # Voids 1 1 Blood Glucose* 112 - Labs CBC & BMP: 07/26/17 15:45 07/26/17 04:59 Labs: Abnormal lab results RBC 3.70 M/mcL (3.82-4.97) L 07/26/17 04:59 Hgb 9.4 g/dL (11.5-15.4) L 07/26/17 15:45 Hct 29.9 % (35.3-44.9) L 07/26/17 15:45 MCHC 30.7 g/dL (31.6-35.5) L 07/26/17 04:59 RDW 16.8 % (11.5-14.5) H 07/26/17 04:59 Nucleated RBCs/100 WBC 0.2 /100 WBC (0) H 07/26/17 04:59 PT 22.4 Seconds (9.4-12.1) H 07/27/17 04:52 BUN 28 mg/dL (8-23) H 07/26/17 04:59 Est GFR (Non-Af Amer) 53 (> 60) L 07/26/17 04:59 BUN/Creatinine Ratio 27 (6-26) H 07/26/17 04:59 - VTE Reasons for not Prescribing Prophylaxis: Not indicated-Anticoagulated or INR therapeutic Documentation of Mechanical Device: Venous foot pump, device Consult Discharge Plan - Plan Referrals: Amy Gomez PAC [Physician Frame Maker] - 08/02/17 8:45 am Maribeth Segura MD [Primary Care Provider] - 09/08/17 10:15 am
[2017-07-27] MEDS: Budesonide/Formoterol 160/4.5 MDI IH SCH (08:21)
[2017-07-27 11:34] VITALS: BP 175/70
[2017-07-27] MEDS ORDERED: Dextrose Gel 15 GM/37.5 ML TUBE PO PRN ×2 (11:46)
[2017-07-27] MEDS ORDERED: *HR* Dextrose 50 % in Water (Syg) 50 ML SYRINGE IVP PRN (11:46)
[2017-07-27] MEDS ORDERED: D5% in Water 1,000 ML IVC PRN (11:46)
[2017-07-27 12:12] LABS: Hemoglobin A1C 6.3 %
[2017-07-27] MEDS: *HR* FentaNYL (PF) 100 MCG/2 ML VIAL IVP PRN (12:48)
[2017-07-27] MEDS ORDERED: *HR* FentaNYL (PF) 100 MCG/2 ML VIAL IVP PRN (14:11)
--- NOTE | 2017-07-27 15:11 | Discharge Summary ---
Date of Encounter: 07/27/17 Time of Encounter: 15:08 - Discharge Diagnosis (1) Proximal humeral fracture Priority: Primary Status: Acute Qualifiers: Encounter type: initial encounter Fracture type: closed Fracture morphology: other fracture Fracture alignment: nondisplaced Laterality: left Qualified Code(s): S42.295A - Other nondisplaced fracture of upper end of left humerus, initial encounter for closed fracture (2) CKD (chronic kidney disease) stage 3, GFR 30-59 ml/min Priority: Secondary Status: Chronic (3) Lupus (systemic lupus erythematosus) Priority: Secondary Status: Chronic Qualifiers: Systemic lupus erythematosus type: other Systemic lupus erythematosus organ involvement: unspecified Qualified Code(s): M32.8 - Other forms of systemic lupus erythematosus (4) Atrial fibrillation, chronic Priority: Secondary Status: Chronic (5) Hypothyroidism Priority: Secondary Status: Chronic Qualifiers: Hypothyroidism type: unspecified Qualified Code(s): E03.9 - Hypothyroidism , unspecified (6) Essential hypertension Priority: Secondary Status: Chronic (7) COPD (chronic obstructive pulmonary disease) Priority: Secondary Status: Chronic Qualifiers: COPD type: unspecified COPD Qualified Code(s): J44.9 - Chronic obstructive pulmonary disease, unspecified (8) Tobacco abuse Priority: Secondary Status: Chronic - Discharge Medications Home Medications: Albuterol Sulfate [Albuterol Inhaler] 2 puff IH Q4HR PRN 07/25/17 [History] Budesonide/Formoterol 160/4.5 [Symbicort 160/4.5] 2 puff IH BIDR 07/25/17 [ History] Carvedilol [Coreg] 6.25 mg PO BID 07/25/17 [History] Citalopram Hydrobromide [Celexa] 40 mg PO DAILY 07/25/17 [History] Enalapril Maleate [Vasotec] 2.5 mg PO BID 07/25/17 [History] HYDROcodone/Acet 7.5/325 mg [Leon 7.5-325 mg] 1 tab PO TID PRN 07/25/17 [ History] Hydroxychloroquine [Plaquenuil] 200 mg PO BID 07/25/17 [History] Isosorbide MONOnitrate (24 HR) [Imdur] 15 mg PO DAILY 07/25/17 [History] Levothyroxine Sodium [Synthroid] 200 mcg PO DAILY 07/25/17 [History] Methotrexate [Otrexup] 20 mg PO QWEEK 07/25/17 [History] Montelukast [Singulair] 10 mg PO DAILY 07/25/17 [History] OxyCODONE ER (12 HR) [OxyCONTIN] 20 mg PO Q8HR 07/25/17 [History] Oxybutynin [Ditropan] 5 mg PO BID 07/25/17 [History] Oxygen 4 l NS DAILY PRN 07/25/17 [History] Pravastatin Sodium [Pravachol] 40 mg PO DAILY 07/25/17 [History] Warfarin [Coumadin] 1.25 mg PO SUMOTUWEFRSA 07/25/17 [History] rOPINIRole [Requip] 1 mg PO HS 07/25/17 [History] Allergies/Adverse Reactions: 3 Allergy/AdvReac Type Severity Reaction Status Date / Time acetaminophen [From Percocet] AdvReac Agitated Verified 03/26/17 22:07 Oxycodone [From Percocet] AdvReac Agitated Verified 03/26/17 22:07 Date of admission: 07/25/17 12:43 Primary care physician: Maribeth Segura Consults: 07/27/17 11:43 Consult to Occupational Therapy [CONS] Routine Comment: Evaluate, develop and implement POC Reason for Consult: left humeral fracture s/p ORIF Consult to Physical Therapy [CONS] Routine Comment: Evaluate, develop and implement POC Reason for Consult: left humeral fracture s/p ORIF Discharging clinician: Doreen Saravia Anticipated date of discharge: 07/27/17 - Patient Status Disposition: Home, Self-Care Condition: Good Functional capacity at discharge: independent ambulation Overall status at discharge: patient is progressing back to baseline - Discharge Instructions Instructions: Arm Fracture in Adults (DC) Follow Up With: Amy Gomez PAC [Physician Motorcycle Fabricator] - 08/02/17 8:45 am Maribeth Segura MD [Primary Care Provider] - 09/08/17 10:15 am - Diet and Activity Activity: resume usual activities as tolerated Diet: diabetic diet, low fat, low cholesterol, low salt diet Hospital course: Ms. Melo is a 62 year old female with the above medical problems, who was admitted with left arm pain following a mechanical fall at home. X-ray of left upper extremity showed proximal humeral fracture. Orthopedic surgery was consulted and patient underwent open reduction and internal fixation of the humeral fracture on 07/26/17. She was noted to have slightly supratherapeutic INR at 4 at admission, received vitamin K and it appears to correct INR prior to surgery. Patient had an uncomplicated postoperative recovery. Physical and occupational therapy evaluation recommended returning to prior living situation. She was cleared by orthopedic surgery for discharge home and is currently medically stable. She will follow up as outpatient with orthopedics. She will continue to wear left upper extremity sling. - Time Spent with Patient Total time spent providing and/or coordinating discharge services: Greater than 30 minutes (45 min) - Constitutional Vitals: Temp Pulse Resp BP Pulse Ox 98.3 F 58 16 175/70 98 07/27/17 11:33 07/27/17 11:33 07/27/17 11:33 07/27/17 11:33 07/27/17 11:33 General appearance: Present: cooperative, A&O X 3, obese, answers questions appropriately - Cardiovascular Cardiovascular exam: Present: RRR, +S1, +S2. Absent: diastolic murmur, gallop, rubs, systolic murmur - Extremities Exam Extremities exam: Present: warm, radial pulses palpable and symmetrical. Absent : calf tenderness, cyanotic, pedal edema Additional comments: LUE- lateral proximal arm with clean and dry juancarlos; arm in sling - VTE Reasons for not Prescribing Prophylaxis: Not indicated-Anticoagulated or INR therapeutic Documentation of Mechanical Device: Venous foot pump, device
[2017-07-27] MEDS ORDERED: *HR* OxyCODONE ER (12 HR) 20 MG TABLET PO SCH (16:00)
[2017-07-27] MEDS ORDERED: Insulin LISPRO 300 UNITS/3 ML VIAL SQ SCH ×2 (16:30→21:00)
[2017-07-27] MEDS ORDERED: *HR* Warfarin 2.5 MG TABLET PO ONE (18:00)
[2017-07-27] MEDS ORDERED: Warfarin perPT PO PRN (18:00)
[2017-07-28] MEDS ORDERED: *HR* Methotrexate 2.5 MG TABLET PO SCH (18:00)
== END 2017-07-27 16:24 | disposition home or self-care (01) | DRG 493 ==
LOC: 3NENU 01:06 → EMEROO 01:06 → SUATTDRO 04:42 → 3NENU 05:05
PROVIDERS: ADMIT Pediatrics; ATTEND Internal Medicine

== ENCOUNTER 2019-02-22 12:11 | Inpatient (IN) ==
--- NOTE | 2019-02-22 10:45 | Discharge Summary ---
<Russ Gordon - Last Filed: 02/22/19 10:41> Date of Encounter: 02/22/19 - Discharge Diagnosis (1) Right shoulder pain Priority: Primary Status: Acute Qualifiers: Chronicity: unspecified Qualified Code(s): M25.511 - Pain in right shoulder - Hospital Course Hospital course: Ms. Melo is a 63 year old female - Time Spent with Patient Total time spent providing and/or coordinating discharge services: - Discharge Medications Prescriptions: Continued Budesonide/Formoterol 160/4.5 [Symbicort 160/4.5] 2 puff IH BIDR Carvedilol [Coreg] 6.25 mg PO BID Citalopram Hydrobromide [Citalopram HBr] 40 mg PO HS HYDROcodone/Acet 7.5/325 mg [[place] 7.5-325 mg] 1 tab PO Q8H PRN PRN Reason: Mild To Moderate Pain Hydroxychloroquine [Plaquenuil] 200 mg PO BID Isosorbide MONOnitrate [Isosorbide Mononitrate ER] 15 mg PO HS Levothyroxine Sodium [Euthyrox] 200 mcg PO QAM Montelukast [Singulair] 10 mg PO HS Ondansetron HCl 8 mg PO Q8H PRN PRN Reason: Nausea Oxybutynin [Ditropan] 5 mg PO BID Pravastatin Sodium [Pravachol] 40 mg PO HS Gabapentin 600 mg PO HS Warfarin [Coumadin] 2.5 mg PO FR Warfarin [Coumadin] 1.25 mg PO SUMOTUWETHSA Albuterol Sulfate [Proventil Inhaler] 2 puff PO Q4H PRN PRN Reason: Shortness Of Breath Melatonin 10 mg PO HS Allopurinol [Zyloprim 100 MG] 100 mg PO HS Allopurinol [Zyloprim 300 MG] 300 mg PO HS Enoxaparin [Lovenox] 40 mg SQ DAILY Mycophenolate Mofetil [Cellcept] 500 mg PO BID Oxycodone HCl [Oxycontin] 30 mg PO TID Potassium Chloride [K-Tab ER] 20 meq PO DAILY Pramipexole Di-HCl [Pramipexole Dihydrochloride] 0.125 mg PO TID Home Medications: Budesonide/Formoterol 160/4.5 [Symbicort 160/4.5] 2 puff IH BIDR 01/28/19 [History] Carvedilol [Coreg] 6.25 mg PO BID 07/16/18 [History] Citalopram Hydrobromide [Citalopram HBr] 40 mg PO HS 07/16/18 [History] HYDROcodone/Acet 7.5/325 mg [[place] 7.5-325 mg] 1 tab PO Q8H PRN 07/16/18 [History] Hydroxychloroquine [Plaquenuil] 200 mg PO BID 07/16/18 [History] Isosorbide MONOnitrate [Isosorbide Mononitrate ER] 15 mg PO HS 07/16/18 [History] Levothyroxine Sodium [Euthyrox] 200 mcg PO QAM 07/16/18 [History] Montelukast [Singulair] 10 mg PO HS 07/16/18 [History] Ondansetron HCl 8 mg PO Q8H PRN 07/16/18 [History] Oxybutynin [Ditropan] 5 mg PO BID 07/16/18 [History] Pravastatin Sodium [Pravachol] 40 mg PO HS 07/16/18 [History] Albuterol Sulfate [Proventil Inhaler] 2 puff PO Q4H PRN 10/26/18 [History] Gabapentin 600 mg PO HS 10/26/18 [History] Warfarin [Coumadin] 1.25 mg PO SUMOTUWETHSA 10/26/18 [History] Warfarin [Coumadin] 2.5 mg PO FR 10/26/18 [History] Allopurinol [Zyloprim 100 MG] 100 mg PO HS 02/22/19 [History] Allopurinol [Zyloprim 300 MG] 300 mg PO HS 02/22/19 [History] Enoxaparin [Lovenox] 40 mg SQ DAILY 02/22/19 [History] Melatonin 10 mg PO HS 02/22/19 [History] Mycophenolate Mofetil [Cellcept] 500 mg PO BID 02/22/19 [History] Oxycodone HCl [Oxycontin] 30 mg PO TID 02/22/19 [History] Potassium Chloride [K-Tab ER] 20 meq PO DAILY 02/22/19 [History] Pramipexole Di-HCl [Pramipexole Dihydrochloride] 0.125 mg PO TID 02/22/19 [History] Allergies/Adverse Reactions: Allergy/AdvReac Type Severity Reaction Status Date / Time hydromorphone [From Dilaudid] AdvReac Confusion Verified 02/22/19 22:18 oxycodone [From Percocet] AdvReac Agitated Verified 02/22/19 22:18 Primary care physician: Maribeth Segura - Patient Status Disposition: Home, Self-Care Condition: Good - Discharge Instructions Follow Up With: Maribeth Segura MD [Primary Care Provider] - Additional Instructions: Discharge Instructions: Total Shoulder Please call [facility] ([phone]), your Primary Care Physician, or report to the Emergency Room if you have any of the following symptoms: Nausea, vomiting, fever greater that 101.5, swelling, chest pain, shortness of breath, increased pain/redness/drainage/odor for your incision site, numbness/tingling, or any other concerning symptoms. ACTIVITY: Always keep your arm in the sling. Do not raise your arm away from your body. Do not use your arm to help with getting in or out of bed. No weight bearing permitted. Only perform those exercises given to you by your therapist. Incentive Spirometer 10 times an hour. MEDICATIONS: Upon discharge resume your home medications. Take all the medications as prescribed. Take a stool softener if taking narcotic pain medications. Stool softeners are only effective if you drink enough fluids. Drink 6-8 glass of water or fluids a day, unless this is not allowed for another health problem. Despite using stool softeners, if you haven't had a bowel movement in 3 days, please switch to a gentle laxative. Gentle laxatives are sold over the counter. You should have a bowel movement within 24 hours, if not call the office. You will be discharged from the hospital with a prescription for pain medication. You are encouraged to decrease the use of narcotic pain medication as tolerated. Should you require a refill, please call the office. [facility] prescribes narcotic pain medication for only 4-6 weeks after surgery. If you require pain medication beyond this time period, you may be referred to your Primary Care Physician or to the Pain Clinic for further evaluation. Plan ahead for refills on pain medication as many narcotics either need to be picked up at the office or mailed. It is best to call 48-72 hours in advance of needing a prescription refill so you don't run out of medication. To help control the post-operative pain, you may take NSAIDs (Aleve,Advil, Motrin, Ibuprofen, Naprosyn) or Tylenol as prescribed on the bottle in addition to the pain medication. WOUND CARE: Leave the dressing on for 7-10 days. You may change the dressing if it becomes saturated greater than 50%. Do not get the dressing wet at anytime. Wash your hands with antibacterial soap, rinse and dry prior to any wound care. If you have juancarlos the visiting nurse or rehab facility can remove the stapes 10-14 days after surgery and place steri-strips across the wound. Leave the steri-strips in place until they fall off on their own. You may let water from the shower run on top of the steri-strips. If you do not have a visiting nurse or rehab facility, you will need to return to the office at 10-14 days for the juancarlos to be removed. If you have itching or redness around the dressing call the office. FOLLOW-UP: Please follow up with your surgeon in the orthopedic clinic, as scheduled <Amy Davidson - Last Filed: 02/25/19 17:09> Orders not resulted at time of discharge: Pending orders 02/22/19 15:12 Surgical Pathology [PTH] Routine Date of Encounter: 02/22/19 Time of Encounter: 17:00 - Discharge Diagnosis (1) Status post total replacement of right shoulder Priority: Primary Status: Acute (2) Right shoulder pain Priority: Primary Status: Chronic Qualifiers: Chronicity: unspecified Qualified Code(s): M25.511 - Pain in right shoulder (3) Rotator cuff tear arthropathy of right shoulder Priority: Primary Status: Acute (4) HTN (hypertension) Priority: Secondary Status: Chronic Qualifiers: Hypertension type: unspecified Qualified Code(s): I10 - Essential (primary) hypertension (5) LALI (obstructive sleep apnea) Priority: Secondary Status: Chronic (6) Diabetes mellitus Priority: Secondary Status: Chronic Qualifiers: Diabetes mellitus type: type 2 Diabetes mellitus fci insulin use: unspecified technical producer insulin use status Diabetes mellitus complication status: with other specified complication Qualified Code(s): E11.69 - Type 2 diabetes mellitus with other specified complication (7) Atrial fibrillation, chronic Priority: Secondary Status: Chronic (8) COPD (chronic obstructive pulmonary disease) Priority: Secondary Status: Chronic Qualifiers: COPD type: unspecified COPD Qualified Code(s): J44.9 - Chronic obstructive pulmonary disease, unspecified (9) Chronic pain Priority: Secondary Status: Chronic Qualifiers: Chronic pain type: other chronic pain Qualified Code(s): G89.29 - Other chronic pain (10) Essential hypertension Priority: Secondary Status: Chronic (11) Hypothyroidism Priority: Secondary Status: Chronic Qualifiers: Hypothyroidism type: unspecified Qualified Code(s): E03.9 - Hypothyroidism, unspecified (12) Lupus (systemic lupus erythematosus) Priority: Secondary Status: Chronic Qualifiers: Systemic lupus erythematosus type: unspecified Systemic lupus erythematosus organ involvement: unspecified Qualified Code(s): M32.9 - Systemic lupus erythematosus, unspecified (13) Tobacco abuse Priority: Secondary Status: Chronic - Hospital Course Hospital course: Ms. Melo is a 63 year old female POD#1 s/p Total Shoulder Replacment Reverse, right [Right shoulder cuff tear arthropathy] 02/22/19 The patient's postoperative course was uneventful. Progressed from intravenous analgesic needs to oral analgesic needs only. Remained neurovascularly intact and mobilized satisfactorily. All radiographic studies were satisfactory. Patient course and disposition was followed by Dr. Miranda. Patient seen by Dr. Miranda as discharging physician on this day. Patient is discharged with plan for rehabilitation and outpatient orthopedic follow up has been arranged. - Time Spent with Patient Total time spent providing and/or coordinating discharge services: Date of admission: 02/22/19 16:31 Primary care physician: Maribeth Segura Consults: 02/22/19 16:38 Consult to Physical Therapy [CONS] Routine Comment: post shoulder surgery Reason for Consult: post shoulder surgery Does patient have active BEDREST order?: No Is patient medically & hemodynamically stable?: Yes Consult to Business Development Engineer [CONS] Routine Reason for SW Consult: shoulder surgery RT Post Op Consult [CONS] Routine 02/22/19 17:03 Consult to Nutrition [CONS] Routine Comment: Consulting Provider: NUTRITION Reason for Dietary Consult: MST Score Discharging clinician: Dallas Miranda Anticipated date of discharge: 02/23/19 - VTE Documentation of Mechanical Device: Venous foot pump, device - Impressions ITS Impressions Shoulder X-Ray 02/22/19 01:00 IMPRESSION: S/p reverse arthroplasty without fracture or malalignment. D/ / Micheal Son MD / Micheal Son MD Interpreting Provider: Micheal Son MD - Patient Status Functional capacity at discharge: independent ambulation Overall status at discharge: patient is progressing back to baseline - Diet and Activity Activity: as per physical therapy Diet: advance to your usual diet
--- NOTE | 2019-02-22 12:28 | History & Physical Report ---
Date of Encounter: 02/22/19 Time of Encounter: 12:28 24 Hour HP Update - Instructions Instructions: If the History and Physical is less than 30 days old and was completed prior to A.M. admission and or procedure and has NOT been updated on calendar day of procedure please complete this update prior to performing procedure. - Update Patient reports changes in Medical Condition: No Changes in examination, assessment, or condition: No Changes in Medication: No Preop tests/diagnostics Reviewed: Yes Surgery Remains Indicated: Yes Consent for Planned Operative Procedure(s) Verified: Yes - Pre-Operative Checklist Preoperative Checklist Indicated: No Prophylactic Antibiotic Ordered: Yes Is VTE Prophylaxis Indicated?: Yes
--- NOTE | 2019-02-22 12:41 | Anesthesia Evaluation PreOp ---
Date of Encounter: 02/22/19 Time of Encounter: 13:20 - Past History Planned Operation: right TSR, reverse ball Cardiac History: HTN, Hyperlipidemia, Arrhythmia (a-fib, last dose of lovenox last pm), Cardiac Surgery (pericardectomy) Pulmonary History: Smoker, COPD, LALI Dx (CPAP 17) CD TECHNICIAN History: Denies Any Significant HX Other Medical History: Diabetes Type II, Thyroid (hypo), Other (morbid obesity BMI 40) Anesthesia History: No Prior Anesthetic Complications, Past Anesthesia (left total shoulder 11/04) Alcohol Use: none Drug use: none Medications and Allergies Allopurinol [Zyloprim 100 MG] 100 mg PO DAILY 07/16/18 [History] Allopurinol [Zyloprim 300 MG] 300 mg PO DAILY 07/16/18 [History] Budesonide/Formoterol 160/4.5 [Symbicort 160/4.5] 2 puff IH BIDR 07/16/18 [History] Carvedilol [Coreg] 6.25 mg PO BID 07/16/18 [History] Citalopram Hydrobromide [Citalopram HBr] 40 mg PO HS 07/16/18 [History] HYDROcodone/Acet 7.5/325 mg [[place] 7.5-325 mg] 1 tab PO Q8H PRN 07/16/18 [History] Hydroxychloroquine [Plaquenuil] 400 mg PO DAILY 07/16/18 [History] Isosorbide MONOnitrate [Isosorbide Mononitrate ER] 15 mg PO HS 07/16/18 [History] Levothyroxine Sodium [Euthyrox] 200 mcg PO DAILY 07/16/18 [History] Methotrexate [Otrexup] 10 mg PO FR 07/16/18 [History] Montelukast [Singulair] 10 mg PO HS 07/16/18 [History] Ondansetron HCl 4 mg PO Q6H PRN 07/16/18 [History] Oxybutynin [Ditropan] 5 mg PO HS 07/16/18 [History] Oxycodone HCl [Oxycodone HCl ER] 30 mg PO Q8H 07/16/18 [History] Potassium Chloride 20 meq PO DAILY 07/16/18 [History] Pramipexole Di-HCl [Pramipexole Dihydrochloride] 0.125 mg PO QAM 07/16/18 [History] Pravastatin Sodium [Pravachol] 40 mg PO HS 07/16/18 [History] Tizanidine HCl 4 mg PO BID PRN 07/16/18 [History] Torsemide [Demadex] 80 mg PO BID 07/16/18 [History] Albuterol Sulfate [Proventil Inhaler] 2 puff PO Q4H PRN 10/26/18 [History] Gabapentin 600 mg PO HS 10/26/18 [History] Pramipexole Di-HCl [Pramipexole Dihydrochloride] 0.25 mg PO QPM 10/26/18 [History] Warfarin [Coumadin] 1.25 mg PO MOWETHSA 10/26/18 [History] Warfarin [Coumadin] 2.5 mg PO SUTU 10/26/18 [History] Docusate [Colace] 100 mg PO BID 5 Days #10 capsule 02/22/19 [Rx] Allergy/AdvReac Type Severity Reaction Status Date / Time acetaminophen [From Percocet] AdvReac Agitated Verified 02/15/19 10:13 hydromorphone [From Dilaudid] AdvReac Confusion Verified 02/15/19 10:13 oxycodone [From Percocet] AdvReac Agitated Verified 02/15/19 10:13 - Meds/Allergy Pre-op Review Medications Reviewed: Yes Allergies Reviewed: Yes Beta Blockers on Current Med List: Yes (Coreg) Anesthesia Results - Labs Laboratory Tests 02/15/19 02/15/19 02/15/19 10:36 10:36 10:36 Hgb 13.6 Hct 43.1 Plt Count 260 PT 25.3 H INR 2.2 APTT 48.5 H Sodium 139 Potassium 4.1 BUN 23 Creatinine 1.08 Anesthesia Exam Weight: 97kg BMI 40 - HEENT Pupil (Motor): EOMI Mallampati: III Teeth: Missing Oral Opening: Less than or equal to 3 - CD TECHNICIAN LOC: Oriented CD TECHNICIAN Motor: Normal RUE, Normal LUE, Normal RLE, Normal LLE, Normal Face CD TECHNICIAN Sensory: Normal: RUE, LUE, RLE, LLE, Face - Cardiac Rhythm: Regular Murmur: None - Pulmonary Breath Sounds: bilateral Clear Respiratory Effort: Symmetrical Anesthesia Assess/Plan ASA Score: 3 Level of consciousness: Cooperative, Oriented Anesthetic Plan: General Regional Nerve Block Plan: Supraclavicular Monitoring Plan: Standard Monitors Recovery Plan: PACU (agrees to GA and block)
[2019-02-22] MEDS ORDERED: *HR* FentaNYL (PF) 100 MCG/2 ML VIAL ONE (13:16)
[2019-02-22] MEDS ORDERED: *HR* Midazolam HCl 2 MG/2 ML VIAL ONE (13:17)
[2019-02-22] MEDS ORDERED: *HR* Propofol 200 MG/20 ML VIAL IVP ONE (13:17)
[2019-02-22] MEDS ORDERED: *HR* Succinylcholine 200 MG/10 ML VIAL IVP ONE (13:19)
[2019-02-22] MEDS ORDERED: Ondansetron 4 MG/2 ML VIAL ONE (13:20)
[2019-02-22] MEDS ORDERED: Dexamethasone 4 MG/ML VIAL ONE (13:20)
[2019-02-22] MEDS ORDERED: Ethanol\\Acetic Acid\\Na Ace\\Ben 1,000 ML IRRIG.SOLN IR ONE (13:22)
[2019-02-22] MEDS ORDERED: Ropivacaine/PF 0.5% 30 ML VIAL ONE (13:23)
[2019-02-22] MEDS ORDERED: ROPIVACAINE/PF/NS 0.25% 1 EACH SYRINGE INTRAART ONE (13:23)
[2019-02-22] MEDS ORDERED: CeFAZolin Syr 2,000MG/20 ML 2,000 MG/20 ML SYRINGE IVPB ONE (13:24)
[2019-02-22] MEDS ORDERED: Albuterol 2.5 MG/3 ML NEBULIZER IH ONE (13:24)
[2019-02-22] MEDS ORDERED: Ringers Solution, Lactated 1,000 ML IVC SCH ×2 (13:30→16:38)
[2019-02-22] MEDS ORDERED: Lidocaine -MPF 2% 2 ML VIAL ONE (14:19)
[2019-02-22] MEDS ORDERED: EPHEDrine 50 MG/ML VIAL ONE (14:31)
--- NOTE | 2019-02-22 14:53 | Anesthesia Procedures ---
Date of Encounter: 02/22/19 Time of Encounter: 14:05 Procedures: Anesthesia - Nerve Block Procedure Date: 02/22/19 Time: 14:05 Allergies/Adv Reactions: percocet,dilaudid Pre-op Diagnosis: right shoulder arthropathy Surgical Procedure: right total shoulder reverse Checklist: Correct Patient Identifier, Correct procedure, History checked (with Silvana WEIR) Correct side: Right Blood Thinner: Yes (stopped coumadin) Monitor Applied: EKG, BP, Pulse Oximetry Supplemental Oxygen via Nasal Cannula (L/min): 2 Sedation: Versed (mg): 2 Sedation: Fentanyl (mcg): 100 Indication: Post Op Analgesia Pre-op Neuro Deficits: No Block Type: Supraclavicular, Other (superficial cervical, intercostobrachial) Catheter placed: No Sterile Technique: Yes Ultrasound used: Yes Anatomy identified: Yes Visual spread of Local: Yes Neuro Stimulation: No Blood on Needle Aspiration: No Smooth Injection of Local: Yes Pain with Injection of Local: No Prep: Chlorhexadine Needle: 22 x 50 mm Stimuplex Local: Ropivacaine (o.5% 25 ml for superclavicular with 8 mg decadron), Other (10 ml 0.25% ropivicaine for superficial cervical and intercostobrachial) Volume (cc): 35 Number of Attempts: 1 Complications: None/effective block Vitals: see nurses notes for vitals, patient tolerated well
--- NOTE | 2019-02-22 15:14 | Orthopedic Operative Note ---
Date of procedure: 02/22/19 Pre-op diagnosis: Right shoulder cuff tear arthropathy Post-op diagnosis: same Procedure: Procedure: Total Shoulder Replacment Reverse, right Estimated blood loss: 100 cc Hardware: Metal and polyethylene replacement: Arthrex 24, +2 , 25 mm screw glenoid baseplate, 4 locking 5.5 screw, 36+4 glenosphere, 9 Dunlap humeral stem, poly insert 3 and 6 metal Exam Under anesthesia: Full motion no instability Procedural Notes: Irreparable rotator cuff tear Operative procedure: The patient was brought to the operating room and placed on the operating room table. After general anesthesia was administered the operative shoulder was examined. Findings were noted. The patient was placed in the modified beachchair position. All pressure points were padded appropriately. And the head was stabilized in the neutral position. The operative extremity was prepped and draped in the sterile surgical fashion. The patient received IV antibiotics prior to skin incision. A standard deltopectoral approach was made to the operative shoulder. Incision was made to the skin and subcutaneous tissue,hemo stasis was obtained with Bovie cautery. Using careful blunt dissection the cephalic vein was identified and mobilized medially. The deltopectoral interval was developed and the clavipectoral fascia was incised. The subscap was released off the lesser tuberosity and tagged with #2 FiberWire suture subscap was irreparable. The humerus was dislocated patient noted to have irreparable tear supraspinatus tendon, and the humeral cut was made along the anatomic neck. Anterior and posterior Bankart retractors were placed to expose the glenoid. The glenoid guide was seated and the centering hole was made. It was reamed with the appropriate reamer. The baseplate was seated and secured with 4 locking 5.5 screw. The baseplate was irrigated and dried and the Glenosphere was seated and secured with the Bravo taper. The Bravo taper was tested and found to be secure, glenosphere fixation was secondarily secured with the central screw. The humerus was redislocated and prepared with the diaphyseal reamers, followed by a broaching process up to the appropriate size 9 Dunlap in the patient's anatomic version. The metaphyseal reamer was then utilized. Trial reduction found the shoulder to be relocatable. Trial components were removed and the Dunlap stem was impacted in place in the patient's anatomic version. Trial reduction found the shoulder to be relocatable and stable with the appropriate 6 metal 3 Tatyana Trial component was removed and the real implant was seated and secured the shoulder was reduced. The shoulder had excellent motion and excellent stability and no evidence of dislocation. The deep tissue was irrigated with pulse irrigation. The PA close the shoulder. The deltopectoral interval was closed with a running #1 PDS suture, subcutaneous tissue was irrigated and closed with 0 PDS suture, the skin was closed with Dermabond. The patient was placed in a sterile dressing, abduction brace and extubated. The patient was then transferred to the recovery room in stable condition. Anesthesia: GETA Surgeon: Dallas Miranda Was there an pastry assistant present: Yes Director Of Graduate Medical Education: Russ Gordon Estimated blood loss (cc): 100 Condition: stable Disposition: PACU
--- NOTE | 2019-02-22 16:13 | Anesthesia Evaluation Post Op ---
Date of Encounter: 02/22/19 Time of Encounter: 16:13 - Discharge PostOp Status: Transfer Patient to floor (Patient's vital signs have been reviewed. Patient is stable postoperatively and has adequately recovered from anesthesia. Patient is determined to have stable airway patency and respiratory function including respiratory rate and oxygen saturation. Patient has a stable heart rate, blood pressure and adequate hydration. Patients mental status is acceptable. Patients temperature is appropriate. Pain and nausea are adequately controlled)
[2019-02-22 16:15] LABS: Hematocrit 37.4 % (35.3-44.9); Hemoglobin 11.8 g/dL (11.5-15.4)
[2019-02-22] MEDS ORDERED: Temazepam 15 MG CAPSULE PO PRN (16:38)
[2019-02-22] MEDS ORDERED: Sennosides 8.6 MG TABLET PO PRN (16:38)
[2019-02-22] MEDS ORDERED: *HR* HYDROcodone/Acet 5/325 mg TABLET PO PRN (16:38)
[2019-02-22] MEDS ORDERED: Naloxone 0.4 MG/ML INJ IVP PRN (16:38)
[2019-02-22] MEDS ORDERED: traMADol 50 MG TABLET PO PRN (16:38)
[2019-02-22] MEDS ORDERED: MOM Conc 10 ML UD.LIQ PO PRN (16:38)
[2019-02-22] MEDS ORDERED: Ondansetron 4 MG/2 ML VIAL IVP PRN (16:38)
[2019-02-22] MEDS: *HR* Enoxaparin 30 MG/0.3 ML SYRINGE SQ SCH (17:33)
[2019-02-22 17:54] LABS: Prothrombin Time 11.4 Seconds (9.4-12.1)
[2019-02-22] MEDS ORDERED: *HR* Enoxaparin 30 MG/0.3 ML SYRINGE SQ SCH (18:00)
[2019-02-22] MEDS ORDERED: *HR* Warfarin 2.5 MG TABLET PO SCH ×2 (18:00)
[2019-02-22] MEDS ORDERED: Melatonin 3 MG TABLET PO SCH (18:00)
[2019-02-22] MEDS: Budesonide/Formoterol 160/4.5 1 PUFF INH IH SCH (20:16)
[2019-02-22] MEDS ORDERED: SYMBICORT IH SCH (21:00)
[2019-02-22] MEDS ORDERED: Isosorbide MONOnitrate (24 HR) 30 MG TAB.ER.24H PO SCH (21:00)
[2019-02-22] MEDS ORDERED: Gabapentin 300 MG CAPSULE PO SCH (21:00)
[2019-02-22] MEDS: *HR* OxyCODONE ER (12 HR) 10 MG TABLET PO SCH ×2 (21:08→21:27)
[2019-02-23] MEDS: *HR* Enoxaparin 30 MG/0.3 ML SYRINGE SQ SCH (05:45)
[2019-02-23 07:10] LABS: Hemoglobin 11.1 g/dL (11.5-15.4)
[2019-02-23] MEDS: Budesonide/Formoterol 160/4.5 1 PUFF INH IH SCH (07:38)
[2019-02-23 07:46] LABS: BUN/Creatinine Ratio 37 (6-26); Blood Urea Nitrogen 34 mg/dL (8-23); Calcium 9.3 mg/dL (8.6-10.3); Carbon Dioxide 23 mEq/L (23-29); Chloride 112 mEq/L (98-107); Glucose 115 mg/dL (70-105); Osmolality,Calculated 303 (280-300); Potassium 4.8 mEq/L (3.5-5.1); Sodium 142 mEq/L (136-145); eGFR For African Americans > 60 (> 60); eGFR For Non-African Americans > 60 (> 60)
[2019-02-23 08:01] VITALS: BP 138/74
[2019-02-23] MEDS: *HR* OxyCODONE ER (12 HR) 10 MG TABLET PO SCH (08:25)
[2019-02-23] MEDS ORDERED: *HR* Warfarin 2.5 MG TABLET PO SCH (18:00)
== END 2019-02-23 10:30 | disposition home or self-care (01) | DRG 483 ==
LOC: SAMDAY 12:11 → 3NENU 16:31
PROVIDERS: ADMIT Orthopaedic Surgery; ATTEND Orthopaedic Surgery

== ENCOUNTER 2019-08-01 13:20 | Inpatient (IN) ==
[2019-08-01 14:52] LABS: Basophils # 0.1 K/mcL (0.0-0.2); Basophils % 1.3 %; Eosinophils # 0.2 K/mcL (0.0-0.6); Eosinophils % 3.4 %; Hematocrit 37.2 % (35.3-44.9); Hemoglobin 11.8 g/dL (11.5-15.4); Immature Granulocytes % 0.7 % (0-4); Lymphocytes # 1.6 K/mcL (0.6-4.6); Lymphocytes % 22.3 %; Mean Corpuscular HGB Conc 31.7 g/dL (31.6-35.5); Mean Corpuscular Hemoglobin 30.1 pg (28.0-33.3); Mean Corpuscular Volume 94.9 fL (83.0-100.0); Mean Platelet Volume 11.3 fL (9.4-12.4); Monocytes # 0.5 K/mcL (0.0-1.3); Monocytes % 7.2 %; Neutrophils # 4.6 K/mcL (1.6-8.9); Platelet Count 210 K/mcL (140-400); Red Blood Count 3.92 M/mcL (3.82-4.97); Red Cell Distribution Width 15.2 % (11.5-14.5); Segmented Neutrophils % 65.1 %; White Blood Count 7.1 K/mcL (4.3-11.1)
[2019-08-01 14:56] LABS: INR 1.2; Prothrombin Time 13.7 Seconds (9.4-12.1)
[2019-08-01 14:58] LABS: Activated Partial Thrombo Time 37.5 Seconds (26.0-36.0)
[2019-08-01 15:13] LABS: Calcium 9.1 mg/dL (8.6-10.3); Potassium 4.3 mEq/L (3.5-5.1)
[2019-08-01 15:14] LABS: Albumin 3.7 g/dL (3.5-5.7); Albumin/Globulin Ratio 1.2 (1.1-2.2); Bilirubin,Direct 0.1 mg/dL (0.0-0.2); Bilirubin,Indirect 0.2 mg/dL (0.0-1.0); Bilirubin,Total 0.3 mg/dL (0.3-1.0); Magnesium 2.3 mg/dL (1.6-2.6); Phosphorous 3.9 mg/dL (2.7-4.5); Total Protein 6.7 g/dL (6.4-8.9)
[2019-08-01] MEDS ORDERED: Naloxone 0.4 MG/ML INJ IVP PRN (16:14)
[2019-08-01] MEDS ORDERED: Ondansetron 4 MG/2 ML VIAL IVP PRN (16:14)
[2019-08-01] MEDS ORDERED: Ipratropium/Albuterol Neb 3 ML IH PRN (17:20)
[2019-08-01] MEDS ORDERED: Morphine Sulfate 2 MG/ML SYRINGE IVP PRN (17:20)
[2019-08-01] MEDS ORDERED: Warfarin perPT PO PRN (18:00)
[2019-08-01 18:41] LABS: Bilirubin,Urine Negative (Negative); Blood,Urine Negative (Negative); Clarity,Urine Cloudy (Clear); Color,Urine Yellow (Yellow); Glucose,Urine (UA) Normal (Normal); Ketones,Urine Negative (Negative); Leukocyte Esterase,Urine Small (Negative); Nitrite,Urine Negative (Negative); Protein,Urine Negative (Neg-Trace); Specific Gravity,Urine 1.018 (1.010-1.025); Urobilinogen,Urine Normal (Normal)
[2019-08-01 18:42] LABS: Bacteria,Urine Many per hpf (None-Few); Hyaline Casts,Urine None Seen per lpf (None-Few); RBC,Urine 0-3 per hpf (0-3); Squamous Epithelial Cell,Urine Many per lpf (None-Few)
[2019-08-01] MEDS ORDERED: *HR* Warfarin 2.5 MG TABLET PO ONE (20:20)
[2019-08-01] MEDS: *HR* OxyCODONE ER (12 HR) 10 MG TABLET PO SCH (20:20)
[2019-08-01] MEDS: Pregabalin 50 MG CAPSULE PO SCH (20:21)
[2019-08-01] MEDS: carvediloL 6.25 MG TABLET PO SCH (20:21)
[2019-08-01] MEDS: Isosorbide MONOnitrate (24 HR) 30 MG TAB.ER.24H PO SCH (20:21)
[2019-08-01] MEDS: tiZANidine 4 MG TABLET PO SCH (20:21)
[2019-08-01] MEDS: Budesonide/Formoterol 160/4.5 1 PUFF INH IH SCH (21:27)
[2019-08-01] MEDS ORDERED: Acetaminophen 325 MG TABLET PO ONE (22:27)
[2019-08-02] MEDS: *HR* HYDROcodone/Acet 7.5/325 mg TABLET PO PRN ×3 (02:13→18:25)
[2019-08-02 04:19] LABS: Basophils # 0.1 K/mcL (0.0-0.2); Eosinophils # 0.2 K/mcL (0.0-0.6); Eosinophils % 3.3 %; Hematocrit 36.4 % (35.3-44.9); Hemoglobin 11.1 g/dL (11.5-15.4); Immature Granulocytes % 0.7 % (0-4); Lymphocytes % 33.1 %; Mean Corpuscular HGB Conc 30.5 g/dL (31.6-35.5); Mean Corpuscular Hemoglobin 29.9 pg (28.0-33.3); Mean Corpuscular Volume 98.1 fL (83.0-100.0); Mean Platelet Volume 11.2 fL (9.4-12.4); Monocytes # 0.5 K/mcL (0.0-1.3); Neutrophils # 3.2 K/mcL (1.6-8.9); Platelet Count 201 K/mcL (140-400); Red Blood Count 3.71 M/mcL (3.82-4.97); Segmented Neutrophils % 53.9 %
[2019-08-02 04:24] LABS: INR 1.2; Prothrombin Time 13.7 Seconds (9.4-12.1)
[2019-08-02 04:46] LABS: BUN/Creatinine Ratio 26 (6-26); Blood Urea Nitrogen 27 mg/dL (8-23); Calcium 9.2 mg/dL (8.6-10.3); Carbon Dioxide 27 mEq/L (23-29); Chloride 107 mEq/L (98-107); Glucose 85 mg/dL (70-105); Osmolality,Calculated 298 (280-300); Potassium 4.3 mEq/L (3.5-5.1); Sodium 142 mEq/L (136-145); eGFR For African Americans > 60 (> 60); eGFR For Non-African Americans 54 (> 60)
[2019-08-02] MEDS: Budesonide/Formoterol 160/4.5 1 PUFF INH IH SCH ×2 (08:12→21:13)
[2019-08-02] MEDS: tiZANidine 4 MG TABLET PO SCH ×2 (10:25→20:18)
[2019-08-02] MEDS: *HR* OxyCODONE ER (12 HR) 10 MG TABLET PO SCH ×3 (10:25→20:18)
[2019-08-02] MEDS: carvediloL 6.25 MG TABLET PO SCH ×2 (10:25→18:25)
[2019-08-02] MEDS ORDERED: *HR* Warfarin 2.5 MG TABLET PO ONE (18:00)
[2019-08-02] MEDS: Cefepime HCl 2,000 MG in 0.9 % Sodium Chloride Mini Bag 100 ML IVPB SCH (18:27)
[2019-08-02] MEDS: Isosorbide MONOnitrate (24 HR) 30 MG TAB.ER.24H PO SCH (20:18)
[2019-08-02] MEDS: Pregabalin 50 MG CAPSULE PO SCH (20:18)
[2019-08-03 04:06] LABS: Basophils # 0.1 K/mcL (0.0-0.2); Basophils % 1.1 %; Eosinophils # 0.2 K/mcL (0.0-0.6); Eosinophils % 3.3 %; Hematocrit 38.4 % (35.3-44.9); Hemoglobin 11.9 g/dL (11.5-15.4); Immature Granulocytes % 0.7 % (0-4); Lymphocytes # 1.9 K/mcL (0.6-4.6); Lymphocytes % 27.1 %; Mean Corpuscular Hemoglobin 29.9 pg (28.0-33.3); Mean Corpuscular Volume 96.5 fL (83.0-100.0); Mean Platelet Volume 11.3 fL (9.4-12.4); Monocytes # 0.4 K/mcL (0.0-1.3); Neutrophils # 4.3 K/mcL (1.6-8.9); Platelet Count 221 K/mcL (140-400); Red Blood Count 3.98 M/mcL (3.82-4.97); Red Cell Distribution Width 15.3 % (11.5-14.5); Segmented Neutrophils % 61.8 %
[2019-08-03 04:13] LABS: INR 1.2
[2019-08-03 04:32] LABS: BUN/Creatinine Ratio 29 (6-26); Blood Urea Nitrogen 26 mg/dL (8-23); Calcium 9.5 mg/dL (8.6-10.3); Carbon Dioxide 24 mEq/L (23-29); Chloride 110 mEq/L (98-107); Glucose 114 mg/dL (70-105); Osmolality,Calculated 298 (280-300); Potassium 4.8 mEq/L (3.5-5.1); Sodium 141 mEq/L (136-145); eGFR For African Americans > 60 (> 60); eGFR For Non-African Americans > 60 (> 60)
[2019-08-03] MEDS: Cefepime HCl 2,000 MG in 0.9 % Sodium Chloride Mini Bag 100 ML IVPB SCH ×2 (05:30→18:36)
[2019-08-03] MEDS: Budesonide/Formoterol 160/4.5 1 PUFF INH IH SCH ×2 (07:18→19:28)
[2019-08-03] MEDS: *HR* OxyCODONE ER (12 HR) 10 MG TABLET PO SCH ×3 (10:09→21:02)
[2019-08-03] MEDS: tiZANidine 4 MG TABLET PO SCH ×2 (10:09→21:00)
[2019-08-03] MEDS: carvediloL 6.25 MG TABLET PO SCH ×2 (10:11→17:12)
[2019-08-03] MEDS: *HR* HYDROcodone/Acet 7.5/325 mg TABLET PO PRN (14:14)
[2019-08-03] MEDS ORDERED: *HR* Warfarin 2.5 MG TABLET PO ONE (18:00)
[2019-08-03] MEDS ORDERED: Acetaminophen 325 MG TABLET PO ONE (20:32)
[2019-08-03] MEDS: Pregabalin 50 MG CAPSULE PO SCH (20:58)
[2019-08-03] MEDS: Isosorbide MONOnitrate (24 HR) 30 MG TAB.ER.24H PO SCH (20:59)
[2019-08-04 06:23] LABS: Basophils # 0.1 K/mcL (0.0-0.2); Basophils % 1.4 %; Eosinophils # 0.2 K/mcL (0.0-0.6); Eosinophils % 3.3 %; Hematocrit 39.3 % (35.3-44.9); Hemoglobin 12.3 g/dL (11.5-15.4); Immature Granulocytes % 0.5 % (0-4); Lymphocytes # 1.9 K/mcL (0.6-4.6); Lymphocytes % 27.8 %; Mean Corpuscular HGB Conc 31.3 g/dL (31.6-35.5); Mean Corpuscular Hemoglobin 29.8 pg (28.0-33.3); Mean Corpuscular Volume 95.2 fL (83.0-100.0); Mean Platelet Volume 11.6 fL (9.4-12.4); Monocytes # 0.5 K/mcL (0.0-1.3); Monocytes % 7.1 %; Platelet Count 211 K/mcL (140-400); Red Blood Count 4.13 M/mcL (3.82-4.97); Red Cell Distribution Width 15.1 % (11.5-14.5); Segmented Neutrophils % 59.9 %; White Blood Count 6.7 K/mcL (4.3-11.1)
[2019-08-04 06:26] LABS: INR 1.4
[2019-08-04 06:38] LABS: BUN/Creatinine Ratio 28 (6-26); Blood Urea Nitrogen 25 mg/dL (8-23); Calcium 9.6 mg/dL (8.6-10.3); Carbon Dioxide 25 mEq/L (23-29); Chloride 109 mEq/L (98-107); Glucose 82 mg/dL (70-105); Osmolality,Calculated 293 (280-300); Potassium 4.6 mEq/L (3.5-5.1); Sodium 140 mEq/L (136-145); eGFR For African Americans > 60 (> 60); eGFR For Non-African Americans > 60 (> 60)
[2019-08-04] MEDS: Cefepime HCl 2,000 MG in 0.9 % Sodium Chloride Mini Bag 100 ML IVPB SCH ×2 (06:43→19:26)
[2019-08-04] MEDS: Budesonide/Formoterol 160/4.5 1 PUFF INH IH SCH ×2 (07:34→22:34)
[2019-08-04] MEDS: carvediloL 6.25 MG TABLET PO SCH ×2 (07:52→17:38)
[2019-08-04] MEDS: *HR* HYDROcodone/Acet 7.5/325 mg TABLET PO PRN ×2 (07:56→13:15)
[2019-08-04] MEDS: *HR* OxyCODONE ER (12 HR) 10 MG TABLET PO SCH ×3 (09:13→20:38)
[2019-08-04] MEDS: tiZANidine 4 MG TABLET PO SCH ×2 (09:14→20:41)
[2019-08-04] MEDS ORDERED: *HR* Warfarin 2.5 MG TABLET PO ONE (18:00)
[2019-08-04] MEDS: Acetaminophen 325 MG TABLET PO PRN (20:37)
[2019-08-04] MEDS: Pregabalin 50 MG CAPSULE PO SCH (20:39)
[2019-08-04] MEDS: Isosorbide MONOnitrate (24 HR) 30 MG TAB.ER.24H PO SCH (20:40)
[2019-08-05 00:57] LABS: Basophils # 0.1 K/mcL (0.0-0.2); Basophils % 1.1 %; Eosinophils # 0.3 K/mcL (0.0-0.6); Hematocrit 37.5 % (35.3-44.9); Hemoglobin 11.6 g/dL (11.5-15.4); Immature Granulocytes % 0.7 % (0-4); Lymphocytes # 2.1 K/mcL (0.6-4.6); Lymphocytes % 25.3 %; Mean Corpuscular HGB Conc 30.9 g/dL (31.6-35.5); Mean Corpuscular Hemoglobin 29.5 pg (28.0-33.3); Mean Corpuscular Volume 95.4 fL (83.0-100.0); Mean Platelet Volume 11.7 fL (9.4-12.4); Monocytes # 0.6 K/mcL (0.0-1.3); Monocytes % 7.3 %; Neutrophils # 5.2 K/mcL (1.6-8.9); Platelet Count 197 K/mcL (140-400); Red Blood Count 3.93 M/mcL (3.82-4.97); Red Cell Distribution Width 15.2 % (11.5-14.5); Segmented Neutrophils % 62.6 %; White Blood Count 8.4 K/mcL (4.3-11.1)
[2019-08-05 00:59] LABS: INR 1.7; Prothrombin Time 18.8 Seconds (9.4-12.1)
[2019-08-05 01:19] LABS: BUN/Creatinine Ratio 31 (6-26); Blood Urea Nitrogen 26 mg/dL (8-23); Calcium 9.1 mg/dL (8.6-10.3); Carbon Dioxide 21 mEq/L (23-29); Chloride 111 mEq/L (98-107); Glucose 133 mg/dL (70-105); Osmolality,Calculated 293 (280-300); Potassium 4.5 mEq/L (3.5-5.1); Sodium 138 mEq/L (136-145); eGFR For African Americans > 60 (> 60); eGFR For Non-African Americans > 60 (> 60)
[2019-08-05] MEDS: Cefepime HCl 2,000 MG in 0.9 % Sodium Chloride Mini Bag 100 ML IVPB SCH ×2 (05:29→17:34)
[2019-08-05] MEDS: *HR* HYDROcodone/Acet 7.5/325 mg TABLET PO PRN (05:45)
[2019-08-05] MEDS: Budesonide/Formoterol 160/4.5 1 PUFF INH IH SCH ×2 (07:54→22:08)
[2019-08-05] MEDS: carvediloL 6.25 MG TABLET PO SCH ×2 (08:16→17:34)
[2019-08-05] MEDS: tiZANidine 4 MG TABLET PO SCH ×2 (08:16→21:03)
[2019-08-05] MEDS: *HR* OxyCODONE ER (12 HR) 10 MG TABLET PO SCH ×3 (08:17→21:03)
[2019-08-05] MEDS ORDERED: Lidocaine -MPF 1% 5 ML AMPUL INFILT ONE (10:28)
[2019-08-05] MEDS ORDERED: Dextrose Gel 15 GM/37.5 ML TUBE PO PRN ×2 (12:05)
[2019-08-05] MEDS ORDERED: D5% in Water 1,000 ML IVC PRN (12:05)
[2019-08-05] MEDS ORDERED: *HR* Dextrose 50 % in Water (Syg) 50 ML SYRINGE IVP PRN (12:05)
[2019-08-05] MEDS: Insulin LISPRO 300 UNITS/3 ML VIAL SQ SCH (17:33)
[2019-08-05] MEDS ORDERED: *HR* Warfarin 2.5 MG TABLET PO ONE (18:00)
[2019-08-05] MEDS: Isosorbide MONOnitrate (24 HR) 30 MG TAB.ER.24H PO SCH (21:02)
[2019-08-05] MEDS: Pregabalin 50 MG CAPSULE PO SCH (21:02)
[2019-08-05] MEDS: Acetaminophen 325 MG TABLET PO PRN (21:39)
[2019-08-06 04:59] LABS: Basophils # 0.1 K/mcL (0.0-0.2); Basophils % 0.9 %; Eosinophils # 0.2 K/mcL (0.0-0.6); Eosinophils % 2.8 %; Hematocrit 34.3 % (35.3-44.9); Hemoglobin 10.7 g/dL (11.5-15.4); Immature Granulocytes % 0.5 % (0-4); Lymphocytes # 1.6 K/mcL (0.6-4.6); Lymphocytes % 19.9 %; Mean Corpuscular HGB Conc 31.2 g/dL (31.6-35.5); Mean Corpuscular Hemoglobin 30.5 pg (28.0-33.3); Mean Corpuscular Volume 97.7 fL (83.0-100.0); Mean Platelet Volume 11.5 fL (9.4-12.4); Monocytes # 0.6 K/mcL (0.0-1.3); Neutrophils # 5.4 K/mcL (1.6-8.9); Platelet Count 172 K/mcL (140-400); Red Blood Count 3.51 M/mcL (3.82-4.97); Red Cell Distribution Width 15.3 % (11.5-14.5); Segmented Neutrophils % 67.9 %
[2019-08-06 05:19] LABS: BUN/Creatinine Ratio 35 (6-26); Blood Urea Nitrogen 30 mg/dL (8-23); Calcium 8.8 mg/dL (8.6-10.3); Carbon Dioxide 23 mEq/L (23-29); Chloride 109 mEq/L (98-107); Glucose 105 mg/dL (70-105); Magnesium 2.1 mg/dL (1.6-2.6); Osmolality,Calculated 297 (280-300); Phosphorous 3.6 mg/dL (2.7-4.5); Potassium 4.4 mEq/L (3.5-5.1); Sodium 140 mEq/L (136-145); eGFR For African Americans > 60 (> 60); eGFR For Non-African Americans > 60 (> 60)
[2019-08-06] MEDS: Cefepime HCl 2,000 MG in 0.9 % Sodium Chloride Mini Bag 100 ML IVPB SCH (05:51)
[2019-08-06] MEDS: *HR* HYDROcodone/Acet 7.5/325 mg TABLET PO PRN (05:59)
[2019-08-06 07:04] LABS: INR 1.7; Prothrombin Time 19.7 Seconds (9.4-12.1)
[2019-08-06] MEDS: Insulin LISPRO 300 UNITS/3 ML VIAL SQ SCH (09:04)
[2019-08-06] MEDS: carvediloL 6.25 MG TABLET PO SCH (09:06)
[2019-08-06] MEDS: tiZANidine 4 MG TABLET PO SCH (09:06)
[2019-08-06] MEDS: *HR* OxyCODONE ER (12 HR) 10 MG TABLET PO SCH (09:07)
[2019-08-06 09:58] VITALS: BP 150/73
[2019-08-06] MEDS: Budesonide/Formoterol 160/4.5 1 PUFF INH IH SCH (11:35)
[2019-08-06] MEDS ORDERED: Aminoglycoside Consult 1 EACH MC ONE (11:37)
[2019-08-06] MEDS ORDERED: *HR* Warfarin 2.5 MG TABLET PO ONE (18:00)
== END 2019-08-06 11:38 | disposition home health service (06) | DRG 552 ==
LOC: EMEROOARM 13:20 → 3ANU 13:20 → SUATTDRO 17:56 → 3ANU 18:30 → SUATTDRO 08-02 12:38
PROVIDERS: ADMIT Pharmacist; ATTEND Internal Medicine

== ENCOUNTER 2019-11-18 07:38 | Inpatient (IN) ==
[2019-11-18] MEDS ORDERED: CeFAZolin Syr 2,000MG/20 ML 2,000 MG/20 ML SYRINGE IVPB ONE (08:08)
[2019-11-18] MEDS ORDERED: Ringers Solution, Lactated 1,000 ML IVC SCH ×2 (08:15→13:54)
[2019-11-18] MEDS ORDERED: Famotidine 20 MG/2 ML VIAL IVP ONE (08:43)
[2019-11-18] MEDS ORDERED: Acetaminophen IV 1,000 MG/100 ML INFUS..BTL IVPB ONE (08:43)
[2019-11-18] MEDS ORDERED: Ondansetron 4 MG/2 ML VIAL IVP ONE (09:06)
[2019-11-18] MEDS ORDERED: Morphine Sulfate 2 MG/ML SYRINGE IVP PRN (09:06)
[2019-11-18] MEDS ORDERED: Ropivacaine/PF 0.5% 30 ML VIAL ONE (09:13)
[2019-11-18] MEDS ORDERED: *HR* Midazolam HCl 2 MG/2 ML VIAL ONE (09:13)
[2019-11-18] MEDS ORDERED: *HR* FentaNYL (PF) 100 MCG/2 ML VIAL ONE (09:13)
[2019-11-18 09:16] LABS: Basophils # 0.1 K/mcL (0.0-0.2); Basophils % 1.3 %; Eosinophils # 0.1 K/mcL (0.0-0.6); Eosinophils % 0.8 %; Hematocrit 34.5 % (35.3-44.9); Hemoglobin 10.4 g/dL (11.5-15.4); Immature Granulocytes % 0.8 % (0-4); Lymphocytes # 1.4 K/mcL (0.6-4.6); Lymphocytes % 15.9 %; Mean Corpuscular HGB Conc 30.1 g/dL (31.6-35.5); Mean Corpuscular Hemoglobin 29.6 pg (28.0-33.3); Mean Corpuscular Volume 98.3 fL (83.0-100.0); Mean Platelet Volume 11.7 fL (9.4-12.4); Monocytes # 0.6 K/mcL (0.0-1.3); Monocytes % 6.5 %; Neutrophils # 6.4 K/mcL (1.6-8.9); Platelet Count 271 K/mcL (140-400); Red Blood Count 3.51 M/mcL (3.82-4.97); Segmented Neutrophils % 74.7 %; White Blood Count 8.6 K/mcL (4.3-11.1)
[2019-11-18] MEDS ORDERED: Tetracaine/PF 20 MG/2 ML AMPUL ONE (09:26)
[2019-11-18 09:35] LABS: Calcium 9.5 mg/dL (8.6-10.3); Potassium 4.2 mEq/L (3.5-5.1)
[2019-11-18] MEDS ORDERED: Lidocaine -MPF 2% 2 ML VIAL ONE (09:45)
[2019-11-18] MEDS ORDERED: Ondansetron 4 MG/2 ML VIAL ONE (09:45)
[2019-11-18] MEDS ORDERED: *HR* Propofol 200 MG/20 ML VIAL IVP ONE (09:45)
[2019-11-18] MEDS ORDERED: *HR* Succinylcholine 200 MG/10 ML VIAL IVP ONE (09:45)
[2019-11-18] MEDS ORDERED: Lidocaine HCL 4 ML Topical Solution (Laryng-O-Jet Kit Sterile Pak) TP ONE (10:13)
[2019-11-18] MEDS ORDERED: Ethanol\\Acetic Acid\\Na Ace\\Ben 1,000 ML IRRIG.SOLN IR ONE ×2 (10:17→11:36)
[2019-11-18] MEDS ORDERED: *HR* Vasopressin 20 UNIT/ML VIAL ONE (10:22)
[2019-11-18] MEDS ORDERED: *HR* PHENYLEPHRINE 1,000 MCG/10 ML SYRINGE IVP ONE (10:36)
[2019-11-18] MEDS ORDERED: EPHEDrine 50 MG/ML VIAL ONE (10:44)
[2019-11-18 13:23] LABS: Hematocrit 33.9 % (35.3-44.9)
[2019-11-18] MEDS ORDERED: Naloxone 0.4 MG/ML INJ IVP PRN (13:54)
[2019-11-18] MEDS ORDERED: Ondansetron 4 MG/2 ML VIAL IVP PRN (13:54)
[2019-11-18] MEDS ORDERED: *HR* OxyCODONE/APAP 5/325 TABLET PO PRN (13:54)
[2019-11-18] MEDS ORDERED: Sennosides 8.6 MG TABLET PO PRN (13:54)
[2019-11-18] MEDS ORDERED: MOM Conc 10 ML UD.LIQ PO PRN (13:54)
[2019-11-18] MEDS ORDERED: *HR* OxyCODONE Immed Rel 5 MG TABLET PO PRN (13:54)
[2019-11-18] MEDS ORDERED: *HR* Phenylephrine 10 MG/ML VIAL ONE (14:14)
[2019-11-18 14:54] VITALS: BP 145/99
[2019-11-18] MEDS ORDERED: *HR* OxyCODONE ER (12 HR) 10 MG TABLET PO SCH (15:00)
[2019-11-18] MEDS ORDERED: *HR* Enoxaparin 30 MG/0.3 ML SYRINGE SQ SCH ×2 (15:00→18:00)
[2019-11-18] MEDS ORDERED: carvediloL 6.25 MG TABLET PO SCH (17:00)
[2019-11-18] MEDS ORDERED: CeFAZolin 2 GM/120 ML BAG IVPB SCH (18:00)
[2019-11-18] MEDS ORDERED: Isosorbide MONOnitrate (24 HR) 30 MG TAB.ER.24H PO SCH (21:00)
[2019-11-18] MEDS ORDERED: allopurinoL 100 MG TABLET PO SCH (21:00)
[2019-11-18] MEDS ORDERED: tiZANidine 4 MG TABLET PO SCH (21:00)
[2019-11-18] MEDS ORDERED: Budesonide/Formoterol 160/4.5 1 PUFF INH IH SCH (22:00)
[2019-11-19] MEDS ORDERED: allopurinoL 300 MG TABLET PO SCH (09:00)
[2019-11-21] MEDS ORDERED: *HR* Warfarin 2.5 MG TABLET PO SCH (10:04)
== END 2019-11-18 17:41 | disposition home health service (06) | DRG 483 ==
LOC: SAMDAY 07:38 → 3NENU 14:11
PROVIDERS: ADMIT Orthopaedic Surgery; ATTEND Orthopaedic Surgery

== ENCOUNTER 2019-12-09 08:42 | Inpatient (IN) ==
[2019-12-09] MEDS ORDERED: Vancomycin 1,500 MG/265 ML IV.SOLN IVPB ONE ×2 (09:09→23:00)
[2019-12-09] MEDS ORDERED: Ringers Solution, Lactated 1,000 ML IVC SCH (09:15)
[2019-12-09] MEDS ORDERED: *HR* HYDROmorphone PF 0.5 MG/0.5 ML SYRINGE IVP PRN (09:19)
[2019-12-09] MEDS ORDERED: Ondansetron 4 MG/2 ML VIAL IVP ONE (09:19)
[2019-12-09] MEDS ORDERED: *HR* OxyCODONE Immed Rel 5 MG TABLET PO PRN (09:19)
[2019-12-09] MEDS ORDERED: *HR* Promethazine 25 MG/ML VIAL IVP PRN (09:19)
[2019-12-09] MEDS ORDERED: Acetaminophen IV 1,000 MG/100 ML INFUS..BTL IVPB ONE (09:21)
[2019-12-09] MEDS ORDERED: *HR* FentaNYL (PF) 100 MCG/2 ML VIAL IVP PRN (09:23)
[2019-12-09] MEDS ORDERED: Lidocaine -MPF 2% 2 ML VIAL ONE (09:36)
[2019-12-09] MEDS ORDERED: *HR* Succinylcholine 200 MG/10 ML VIAL IVP ONE (09:36)
[2019-12-09] MEDS ORDERED: Lidocaine -MPF 4% 5 ML AMPUL ONE (09:36)
[2019-12-09] MEDS ORDERED: *HR* FentaNYL (PF) 100 MCG/2 ML VIAL ONE ×2 (09:36→12:20)
[2019-12-09] MEDS ORDERED: *HR* Propofol 200 MG/20 ML VIAL IVP ONE (09:37)
[2019-12-09] MEDS ORDERED: 0.9 % Sodium Chloride 1,000 ML IVC SCH (10:15)
[2019-12-09] MEDS ORDERED: Ethanol\\Acetic Acid\\Na Ace\\Ben 1,000 ML IRRIG.SOLN IR ONE (10:27)
[2019-12-09] MEDS ORDERED: Vancomycin 1,000 MG VIAL ONE (10:38)
[2019-12-09] MEDS ORDERED: EPHEDrine 50 MG/ML VIAL ONE (12:17)
[2019-12-09] MEDS ORDERED: Ringers Solution, Lactated 1,000 ML ONE (12:44)
[2019-12-09] MEDS ORDERED: *HR* HYDROcodone/Acet 5/325 mg TABLET PO PRN (13:33)
[2019-12-09] MEDS ORDERED: Dextrose Gel 15 GM/37.5 ML TUBE PO PRN ×2 (13:33)
[2019-12-09] MEDS ORDERED: Naloxone 0.4 MG/ML INJ IVP PRN (13:33)
[2019-12-09] MEDS ORDERED: *HR* Dextrose 50 % in Water (Vial) 50 ML VIAL IVP PRN (13:33)
[2019-12-09] MEDS ORDERED: Famotidine 20 MG TABLET PO PRN (13:33)
[2019-12-09] MEDS ORDERED: Ondansetron 4 MG/2 ML VIAL IVP PRN (13:33)
[2019-12-09] MEDS ORDERED: D5% in Water 1,000 ML IVC PRN (13:33)
[2019-12-09] MEDS ORDERED: *HR* HYDROcodone/Acet 7.5/325 mg TABLET PO PRN (13:33)
[2019-12-09] MEDS ORDERED: MOM Conc 10 ML UD.LIQ PO PRN (13:33)
[2019-12-09] MEDS ORDERED: Sennosides 8.6 MG TABLET PO PRN (13:33)
[2019-12-09 14:35] LABS: INR 1.3; Prothrombin Time 15.3 Seconds (9.4-12.1)
[2019-12-09 14:43] LABS: Hematocrit 30.3 % (35.3-44.9); Hemoglobin 9.2 g/dL (11.5-15.4)
[2019-12-09] MEDS: *HR* OxyCODONE ER (12 HR) 40 MG TABLET PO SCH ×2 (15:15→20:27)
[2019-12-09] MEDS: carvediloL 6.25 MG TABLET PO SCH (15:15)
[2019-12-09] MEDS: Ringers Solution, Lactated 1,000 ML IVC SCH (15:15)
[2019-12-09] MEDS: Torsemide 20 MG TABLET PO SCH (15:15)
[2019-12-09] MEDS: Insulin LISPRO 300 UNITS/3 ML VIAL SQ SCH (16:06)
[2019-12-09] MEDS ORDERED: Ipratropium/Albuterol Neb 3 ML IH PRN (17:00)
[2019-12-09] MEDS ORDERED: *HR* Warfarin 1 MG TABLET PO ONE (18:00)
[2019-12-09] MEDS ORDERED: *HR* Enoxaparin 30 MG/0.3 ML SYRINGE SQ SCH ×2 (18:00)
[2019-12-09] MEDS: Budesonide/Formoterol 160/4.5 1 PUFF INH IH SCH (20:15)
[2019-12-09] MEDS ORDERED: Insulin LISPRO 300 UNITS/3 ML VIAL SQ SCH (21:00)
[2019-12-09] MEDS ORDERED: Isosorbide MONOnitrate (24 HR) 30 MG TAB.ER.24H PO SCH (21:00)
[2019-12-09] MEDS ORDERED: allopurinoL 100 MG TABLET PO SCH (21:00)
[2019-12-09] MEDS: tiZANidine 4 MG TABLET PO SCH (22:21)
[2019-12-10] MEDS: Ringers Solution, Lactated 1,000 ML IVC SCH (00:30)
[2019-12-10 05:38] VITALS: BP 125/66
[2019-12-10] MEDS: Budesonide/Formoterol 160/4.5 1 PUFF INH IH SCH (07:52)
[2019-12-10 07:58] LABS: Hematocrit 24.7 % (35.3-44.9)
[2019-12-10 08:03] LABS: INR 1.4; Prothrombin Time 15.9 Seconds (9.4-12.1)
[2019-12-10 08:17] LABS: Hemoglobin 7.3 g/dL (11.5-15.4)
[2019-12-10 08:18] LABS: Potassium 3.9 mEq/L (3.5-5.1)
[2019-12-10] MEDS ORDERED: Warfarin perPT PO PRN (09:00)
[2019-12-10] MEDS: Insulin LISPRO 300 UNITS/3 ML VIAL SQ SCH (09:17)
[2019-12-10] MEDS: *HR* OxyCODONE ER (12 HR) 40 MG TABLET PO SCH (09:25)
[2019-12-10] MEDS: Torsemide 20 MG TABLET PO SCH (09:25)
[2019-12-10] MEDS: carvediloL 6.25 MG TABLET PO SCH (09:25)
[2019-12-10] MEDS: tiZANidine 4 MG TABLET PO SCH (09:25)
[2019-12-10] MEDS ORDERED: Doxycycline 100 MG CAPSULE PO SCH (09:30)
[2019-12-10] MEDS ORDERED: Amoxicillin/Clavulanate 500 MG TABLET PO SCH (09:30)
== END 2019-12-10 10:30 | disposition home or self-care (01) | DRG 483 ==
LOC: SAMDAY 08:42 → 3NENU 13:15
PROVIDERS: ADMIT Orthopaedic Surgery; ATTEND Orthopaedic Surgery

== ENCOUNTER 2021-12-06 17:31 | Observation (INO) ==
[2021-12-06 19:01] LABS: INR 3.3; Prothrombin Time 36.2 Seconds (9.4-12.1)
[2021-12-06 19:03] LABS: Activated Partial Thrombo Time 59.9 Seconds (26.0-36.0)
[2021-12-06 19:04] LABS: Basophils # 0.1 K/mcL (0.0-0.2); Basophils % 1.1 %; Eosinophils # 0.1 K/mcL (0.0-0.6); Eosinophils % 2.7 %; Hematocrit 36.5 % (35.3-44.9); Hemoglobin 10.5 g/dL (11.5-15.4); Immature Granulocytes % 0.8 % (0-4); Lymphocytes # 0.7 K/mcL (0.6-4.6); Lymphocytes % 13.2 %; Mean Corpuscular HGB Conc 28.8 g/dL (31.6-35.5); Mean Corpuscular Hemoglobin 29.5 pg (28.0-33.3); Mean Corpuscular Volume 102.5 fL (83.0-100.0); Mean Platelet Volume 11.8 fL (9.4-12.4); Monocytes # 0.5 K/mcL (0.0-1.3); Neutrophils # 3.8 K/mcL (1.6-8.9); Platelet Count 150 K/mcL (140-400); Red Blood Count 3.56 M/mcL (3.82-4.97); Red Cell Distribution Width 14.8 % (11.5-14.5); Segmented Neutrophils % 73.2 %; White Blood Count 5.2 K/mcL (4.3-11.1)
[2021-12-06 19:20] LABS: Platelet Estimate Normal (Normal)
[2021-12-06 19:30] LABS: Calcium 8.8 mg/dL (8.6-10.3); Magnesium 2.3 mg/dL (1.6-2.6); Potassium 6.9 mEq/L (3.5-5.1)
[2021-12-06] MEDS ORDERED: *HR* Dextrose 50 % in Water (Vial) 50 ML VIAL IVP ONE (19:47)
[2021-12-06] MEDS ORDERED: Albuterol Neb 7.5 MG, Sodium Chloride for inhalation 12 ML IH ONE (19:47)
[2021-12-06] MEDS ORDERED: Calcium Gluconate 1gm/50mL 1 GM/50 ML BAG IVPB ONE ×2 (19:47→20:07)
[2021-12-06] MEDS ORDERED: Insulin Human Regular 5 UNIT in 0.9 % Sodium Chloride 10 ML IV ONE (19:47)
[2021-12-06] MEDS ORDERED: Naloxone 0.4 MG/ML INJ IVP PRN (20:16)
[2021-12-06] MEDS ORDERED: Melatonin 3 MG TABLET PO PRN (20:16)
[2021-12-06] MEDS ORDERED: Acetaminophen 325 MG TABLET PO PRN (20:16)
[2021-12-06] MEDS ORDERED: Ondansetron 4 MG/2 ML VIAL IVP PRN (20:16)
[2021-12-06] MEDS ORDERED: 0.9 % Sodium Chloride 1,000 ML IVC SCH (20:30)
[2021-12-06] MEDS: SODIUM ZIRCONIUM CYCLOSILICATE 5 GM POWD.PACK PO SCH (22:55)
[2021-12-06 23:12] LABS: Calcium 8.8 mg/dL (8.6-10.3); Potassium 6.5 mEq/L (3.5-5.1)
[2021-12-07] MEDS ORDERED: traZODone 50 MG TABLET PO PRN (02:48)
[2021-12-07] MEDS ORDERED: *HR* HYDROcodone/Acet 7.5/325 mg TABLET PO PRN (02:51)
[2021-12-07 06:18] LABS: Hematocrit 34.6 % (35.3-44.9); Mean Corpuscular HGB Conc 28.9 g/dL (31.6-35.5); Mean Corpuscular Volume 100.3 fL (83.0-100.0); Mean Platelet Volume 11.6 fL (9.4-12.4); Platelet Count 148 K/mcL (140-400); Red Blood Count 3.45 M/mcL (3.82-4.97); Red Cell Distribution Width 14.8 % (11.5-14.5); White Blood Count 4.8 K/mcL (4.3-11.1)
[2021-12-07 06:29] LABS: INR 2.7; Prothrombin Time 29.9 Seconds (9.4-12.1)
[2021-12-07 06:39] LABS: Calcium 8.8 mg/dL (8.6-10.3); Potassium 6.2 mEq/L (3.5-5.1)
[2021-12-07] MEDS ORDERED: carvediloL 6.25 MG TABLET PO SCH (08:00)
[2021-12-07] MEDS ORDERED: *HR* OxyCODONE ER (12 HR) 40 MG TABLET PO SCH (08:00)
[2021-12-07] MEDS ORDERED: FLUoxetine 20 MG CAPSULE PO SCH (09:00)
[2021-12-07] MEDS: SODIUM ZIRCONIUM CYCLOSILICATE 5 GM POWD.PACK PO SCH (09:27)
[2021-12-07] MEDS: *HR* OxyCODONE ER (12 HR) 20 MG TABLET PO SCH ×3 (09:27→23:00)
[2021-12-07] MEDS ORDERED: Nystatin POWDER 30 GM BOTTLE TP PRN (10:12)
[2021-12-07 13:13] LABS: Calcium 8.8 mg/dL (8.6-10.3); Potassium 5.8 mEq/L (3.5-5.1)
[2021-12-07] MEDS ORDERED: *HR* Warfarin 1 MG TABLET PO ONE (18:00)
[2021-12-07] MEDS ORDERED: Warfarin perPT PO PRN (18:00)
[2021-12-07] MEDS ORDERED: SODIUM ZIRCONIUM CYCLOSILICATE 5 GM POWD.PACK PO SCH (22:30)
[2021-12-08 03:56] LABS: Mean Platelet Volume 11.7 fL (9.4-12.4); Red Cell Distribution Width 14.6 % (11.5-14.5)
[2021-12-08 03:57] LABS: Hematocrit 33.4 % (35.3-44.9); Hemoglobin 9.8 g/dL (11.5-15.4); Mean Corpuscular HGB Conc 29.3 g/dL (31.6-35.5); Mean Corpuscular Hemoglobin 29.8 pg (28.0-33.3); Mean Corpuscular Volume 101.5 fL (83.0-100.0); Platelet Count 136 K/mcL (140-400); Red Blood Count 3.29 M/mcL (3.82-4.97); White Blood Count 4.5 K/mcL (4.3-11.1)
[2021-12-08 04:02] LABS: INR 1.9
[2021-12-08 04:15] LABS: Calcium 8.7 mg/dL (8.6-10.3); Magnesium 2.1 mg/dL (1.6-2.6); Potassium 5.3 mEq/L (3.5-5.1)
[2021-12-08] MEDS ORDERED: carvediloL 6.25 MG TABLET PO SCH (08:00)
[2021-12-08] MEDS: *HR* OxyCODONE ER (12 HR) 20 MG TABLET PO SCH (08:59)
[2021-12-08] MEDS ORDERED: Ipratropium/Albuterol Neb 3 ML IH PRN (09:51)
[2021-12-08] MEDS ORDERED: *HR* HYDROcodone/Acet 7.5/325 mg TABLET PO PRN (09:51)
[2021-12-08] MEDS ORDERED: Budesonide/Formoterol 160/4.5 1 PUFF INH IH SCH (10:00)
[2021-12-08 12:13] VITALS: BP 135/74; PULSE 64; TEMP 97.4; O2SAT 95
[2021-12-08] MEDS ORDERED: Torsemide 20 MG TABLET PO SCH (17:00)
[2021-12-08] MEDS ORDERED: tiZANidine 4 MG TABLET PO SCH (21:00)
[2021-12-08] MEDS ORDERED: Isosorbide MONOnitrate (24 HR) 30 MG TAB.ER.24H PO SCH (21:00)
[2021-12-09] MEDS ORDERED: allopurinoL 100 MG TABLET PO SCH (09:00)
[2021-12-09] MEDS ORDERED: FLUoxetine 20 MG CAPSULE PO SCH (09:00)
== END 2021-12-08 13:20 | disposition home or self-care (01) ==
LOC: EMEROOARM 17:31 → 2NENU 17:31 → SUATTDRO 20:25 → 2NENU 21:07
PROVIDERS: ADMIT Internal Medicine; ATTEND Internal Medicine